=== PATIENT | male | born 1950 | race American Indian/Alaskan Native ===

== ENCOUNTER 2016-07-10 12:11 | Inpatient (IN) | payer OTHER ==
[2016-07-10 15:06] LABS: Basophils % (Auto) 1.2 % (0.0-1.8); Eosinophils % (Auto) 2.2 % (0.0-4.3); Hemoglobin 14.9 gm/dl (11.8-15.2); Mean Corpuscular HGB Conc 33 % (32-34); Mean Corpuscular Hemoglobin 26 pg (28-32); Mean Corpuscular Volume 81 fl (84-94); Platelet Count 151 K/mm3 (140-440); Red Blood Count 5.71 M/mm3 (3.65-5.03); Red Cell Distribution Width 16.5 % (13.2-15.2); White Blood Count 2.9 K/mm3 (4.5-11.0)
[2016-07-10 15:26] LABS: Alanine Aminotransferase 622 units/L (7-56); Albumin 4.2 g/dL (3.9-5); Albumin/Globulin Ratio 1.4 %; Alkaline Phosphatase 1101 units/L (35-129); Anion Gap 16 mmol/L; BUN/Creatinine Ratio 18.57; Bilirubin,Total 5.7 mg/dL (0.1-1.2); Blood Urea Nitrogen 13 mg/dL (9-20); Calcium 9.8 mg/dL (8.4-10.2); Carbon Dioxide 26 mmol/L (22-30); Glucose 178 mg/dL (75-100); Lipase 29 units/L (13-60); Potassium 4.2 mmol/L (3.6-5.0); Sodium 136 mmol/L (137-145); Total Protein 7.3 g/dL (6.3-8.2)
[2016-07-10 15:42] LABS: Bilirubin,Urine NEG (Negative); Blood,Urine NEG (Negative); Ketones,Urine NEG (Negative); Leukocyte Esterase,Urine NEG (Negative); Mucus,Urine FEW /HPF; Nitrite,Urine NEG (Negative); Protein,Urine <15 mg/dL mg/dL (Negative)
[2016-07-10] MEDS ORDERED: NACL ONE (18:41)
--- NOTE | 2016-07-10 21:21 | Cat Scan Report ---
FINAL REPORT EXAM: CT ABDOMEN PELVIS W CON HISTORY: elevated lft's, jaundice wt loss TECHNIQUE: CT images are acquired through the Abdomen and Pelvis following intravenous administration 100 cc Omnipaque 300 contrast. Transaxial, coronal and sagittal reformations are provided. PRIORS: None FINDINGS: Partially visualized intrathoracic contents are unremarkable. Diffuse marked intra and extrahepatic biliary ductal dilatation. Extensive pancreatic ductal dilatation with parenchymal atrophy. Heterogeneous pancreatic head secondary to underlying mass, which is ill-defined but probably measures around 2-3 centimeters in greatest dimension. There is no obvious tumor encasement of the celiac or superior mesenteric artery on this single phase exam. There is focal narrowing of both the splenic artery and splenic vein, which may be due to mass effect from pancreatic ductal dilatation. Distended gallbladder without cholelithiasis. The spleen and adrenal glands are unremarkable. Multiple hypo enhancing renal lesions in both kidneys are incompletely characterized on this exam. Nonobstructive 4 millimeter left renal stone. Kidneys show no worrisome lesions, hydronephrosis, or calculi. No stones in the urinary bladder. Mild prostatomegaly. Small and large bowel are normal in caliber. Appendix is normal. No pneumoperitoneum or ascites. Aorta is normal in course and caliber. Superficial soft tissues are unremarkable. No acute or aggressive appearing skeletal findings. IMPRESSION: Diffuse intra and extrahepatic biliary ductal dilatation secondary to ill-defined pancreatic head mass, most consistent with adenocarcinoma. No definite tumoral encasement of the major abdominal branches of the aorta on this single-phase examination. Consider multiphase CT versus MRI for further evaluation. Numerous indeterminate hypo enhancing lesions in both kidneys are most likely cysts but incompletely characterized on this exam. Dr. Sosa discussed findings with Dr. Mcnair at [facility] following the examination.
--- NOTE | 2016-07-10 21:30 | Emergency Department Report ---
- General Chief complaint: Weakness Stated complaint: WEIGHT LOSS/EXCESSIVE URINATION/DEHYDRATION Time Seen by Provider: 07/10/16 18:30 Source: patient Mode of arrival: Ambulatory Limitations: No Limitations - History of Present Illness Initial comments: 66-year-old male with no known past medical history but also no primary care doctor presents to the hospital complains of excessive urination 4 weeks, weight loss despite normal appetite and yellow eyes. Symptoms have been going on for weeks. Son at the bedside who is a physician expresses concern for diabetes and has been documenting fasting glucose levels between 170s and 200s. Patient denies any pain. No reports of nausea, vomiting, diarrhea, or fever. Severity scale (0 -10): 0 - Related Data Allergies Allergy/AdvReac Type Severity Reaction Status Date / Time No Known Allergies Allergy Unverified 07/10/16 14:00 ED Review of Systems ROS: Stated complaint: WEIGHT LOSS/EXCESSIVE URINATION/DEHYDRATION Other details as noted in HPI Comment: All other systems reviewed and negative Other: Constitutional: No fevers chills Eyes: jaundice ENT: No ear pain or throat pain Neck: Denies pain Respiratory: Denies cough wheezing shortness of breath Cardiovascular: Denies chest pain, palpitations, syncope GI: Denies abdominal pain, nausea, vomiting, diarrhea, constipation : Denies dysuria Musculoskeletal: Denies back pain Skin: Denies rash, lesions, erythema Neurologic: Denies headache, numbness, weakness Psychiatric: Denies suicidal ideation, hallucinations ED Past Medical Hx - Past Medical History Previous Medical History?: Yes Additional medical history: weakness - Surgical History Past Surgical History?: No - Social History Smoking Status: Former Smoker Substance Use Type: Alcohol ED Physical Exam - General Limitations: No Limitations - Other Other exam information: General: No limitations, patient is alert in no acute distress Head exam: Atraumatic, normocephalic Eyes exam: Jaundice ENT: Moist mucous membrane, normal oropharynx Neck exam: Normal inspection, full range of motion, no meningismus nontender Respiratory exam: Clear to auscultation bilateral, no wheezes, rales, crackles Cardiovascular: Normal rate and rhythm, normal heart sounds Abdomen: Soft, nondistended, and nontender, with normal bowel sounds, no rebound, or guarding Extremity: Full range of motion normal inspection no deformity Back: Normal Inspection, full range of motion, no tenderness Neurologic: Alert, oriented x3, cranial nerves intact, no motor or sensory deficit Psychiatric: normal affect, normal mood Skin: Warm, dry, intact ED Course Vital Signs 07/10/16 07/10/16 14:00 18:05 Temperature 98.3 F 98.1 F Pulse Rate 56 L 52 L Respiratory 18 16 Rate Blood Pressure 167/103 Blood Pressure 173/91 [Left] O2 Sat by Pulse 100 99 Oximetry - Reevaluation(s) Reevaluation #1: 07/10/16 23:05 pt remains stable without any acute distress - Consultations Consultation #1: 07/10/16 22:53 Case d/w Dr. Constanza CAAL and his group will evaluate pt during admission ED Medical Decision Making - Lab Data Result diagrams: 07/10/16 14:48 07/10/16 14:48 Lab Results 07/10/16 07/10/16 07/10/16 Range/Units 14:04 14:41 14:48 WBC 2.9 L (4.5-11.0) K/mm3 RBC 5.71 H (3.65-5.03) M/mm3 Hgb 14.9 (11.8-15.2) gm/dl Hct 46.0 H (35.5-45.6) % MCV 81 L (84-94) fl MCH 26 L (28-32) pg MCHC 33 (32-34) % RDW 16.5 H (13.2-15.2) % Plt Count 151 (140-440) K/mm3 Lymph % (Auto) 35.8 H (13.4-35.0) % Foard % (Auto) 12.2 H (0.0-7.3) % Eos % (Auto) 2.2 (0.0-4.3) % Baso % (Auto) 1.2 (0.0-1.8) % Lymph # 1.0 L (1.2-5.4) K/mm3 Foard # 0.4 (0.0-0.8) K/mm3 Eos # 0.1 (0.0-0.4) K/mm3 Baso # 0.0 (0.0-0.1) K/mm3 Seg Neutrophils % 48.6 (40.0-70.0) % Seg Neutrophils # 1.4 L (1.8-7.7) K/mm3 Sodium (137-145) mmol/L Potassium (3.6-5.0) mmol/L Chloride (98-107) mmol/L Carbon Dioxide (22-30) mmol/L Anion Gap mmol/L BUN (9-20) mg/dL Creatinine (0.8-1.5) mg/dL Estimated GFR ml/min BUN/Creatinine Ratio % Glucose (75-100) mg/dL POC Glucose 180 H (70-105) Hemoglobin A1c (4-6) % Calcium (8.4-10.2) mg/dL Total Bilirubin (0.1-1.2) mg/dL AST (5-40) units/L ALT (7-56) units/L Alkaline Phosphatase (35-129) units/L Total Protein (6.3-8.2) g/dL Albumin (3.9-5) g/dL Albumin/Globulin Ratio % Lipase (13-60) units/L Urine Color Rochelle (Yellow) Urine Turbidity Clear (Clear) Urine pH 5.0 (5.0-7.0) Ur Specific Pharr 1.017 (1.003-1.030) Urine Protein <15 mg/dl (Negative) mg/dL Urine Glucose (UA) >=500 (Negative) mg/dL Urine Ketones Neg (Negative) mg/dL Urine Blood Neg (Negative) Urine Nitrite Neg (Negative) Urine Bilirubin Neg (Negative) Urine Urobilinogen 4.0 (<2.0) mg/dL Ur Leukocyte Esterase Neg (Negative) Urine WBC (Auto) 1.0 (0.0-6.0) /HPF Urine RBC (Auto) 3.0 (0.0-6.0) /HPF U Epithel Cells (Auto) 1.0 (0-13.0) /HPF Calcium Oxalate Crystal 2+ Urine Mucus Few /HPF 07/10/16 07/10/16 Range/Units 14:48 14:48 WBC (4.5-11.0) K/mm3 RBC (3.65-5.03) M/mm3 Hgb (11.8-15.2) gm/dl Hct (35.5-45.6) % MCV (84-94) fl MCH (28-32) pg MCHC (32-34) % RDW (13.2-15.2) % Plt Count (140-440) K/mm3 Lymph % (Auto) (13.4-35.0) % Foard % (Auto) (0.0-7.3) % Eos % (Auto) (0.0-4.3) % Baso % (Auto) (0.0-1.8) % Lymph # (1.2-5.4) K/mm3 Foard # (0.0-0.8) K/mm3 Eos # (0.0-0.4) K/mm3 Baso # (0.0-0.1) K/mm3 Seg Neutrophils % (40.0-70.0) % Seg Neutrophils # (1.8-7.7) K/mm3 Sodium 136 L (137-145) mmol/L Potassium 4.2 (3.6-5.0) mmol/L Chloride 98.0 (98-107) mmol/L Carbon Dioxide 26 (22-30) mmol/L Anion Gap 16 mmol/L BUN 13 (9-20) mg/dL Creatinine 0.7 L (0.8-1.5) mg/dL Estimated GFR > 60 ml/min BUN/Creatinine Ratio 18.57 % Glucose 178 H (75-100) mg/dL POC Glucose (70-105) Hemoglobin A1c 10.0 H (4-6) % Calcium 9.8 (8.4-10.2) mg/dL Total Bilirubin 5.7 H (0.1-1.2) mg/dL AST 251 H (5-40) units/L ALT 622 H (7-56) units/L Alkaline Phosphatase 1101 H (35-129) units/L Total Protein 7.3 (6.3-8.2) g/dL Albumin 4.2 (3.9-5) g/dL Albumin/Globulin Ratio 1.4 % Lipase 29 (13-60) units/L Urine Color (Yellow) Urine Turbidity (Clear) Urine pH (5.0-7.0) Ur Specific Pharr (1.003-1.030) Urine Protein (Negative) mg/dL Urine Glucose (UA) (Negative) mg/dL Urine Ketones (Negative) mg/dL Urine Blood (Negative) Urine Nitrite (Negative) Urine Bilirubin (Negative) Urine Urobilinogen (<2.0) mg/dL Ur Leukocyte Esterase (Negative) Urine WBC (Auto) (0.0-6.0) /HPF Urine RBC (Auto) (0.0-6.0) /HPF U Epithel Cells (Auto) (0-13.0) /HPF Calcium Oxalate Crystal Urine Mucus /HPF - Radiology Data Radiology results: report reviewed ETM and pelvis IV contrast: Diffuse intrahepatic alert and intrahepatic biliary duct dilatation. There are 2 ill defined pancreatic head mass, most consistent with adenocarcinoma. No definite tumor encasement of the major abdominal branches of the aorta on this single phase examination. Numerous indeterminate hypoenhancing lesions in both kidneys most likely cyst with incomplete characterize on exam. - Medical Decision Making Patient has hypertension and new-onset diabetes as well as probable pancreatic cancer with intermittent intrahepatic duct dilatation. Case discussed with GI sheet rock installation helper Dr. Apodaca in preparation for possible stenting. PT requires admission to the hospital for further treatment - Differential Diagnosis pancreatic mass, pancreatic cancer, hepatitis, diabetes Critical Care Time: No Critical care attestation.: If time is entered above; I have spent that time in minutes in the direct care of this critically ill patient, excluding procedure time. ED Disposition Clinical Impression: Pancreatic cancer, Jaundice, Intrahepatic bile duct dilation, HTN (hypertension ), Diabetes mellitus, new onset Disposition: OP ADMITTED IP TO THIS HOSP Is pt being admited?: Yes Condition: Stable Time of Disposition: 21:30 (Dr Traore/hosp)
--- NOTE | 2016-07-10 21:51 | Admit Criteria Form ---
Admission Criteria Documentation: GASTROENTEROLOGY GRG Clinical Indications for Admission to Inpatient Care (Place 'X' for any and all applicable criteria): Hospital admission is needed for appropriate care of the patient because of ANY ONE of the following: [ ]I. Hemoperitoneum(7) [ ]II. Ascites requiring acute treatment indicated by ANY ONE of the following( 8)(9): [ ]a) Hemodynamic instability remaining after emergency or observation level care (as appropriate) [ ]b) Peritoneal signs present (eg, abdominal rigidity, rebound tenderness, absent bowel sounds) [ ]c) Tachypnea, Hypoxemia, or other respiratory symptoms remain after emergency or observation level care (as appropriate) [ ]d) Suspected infected ascites as indicated by ANY ONE of the following: [ ]i) Temperature greater than 100 degrees F (37.8 degrees C) [ ]ii) Abdominal pain or tenderness not relieved by paracentesis [ ]iii) Systemic signs of infection (eg, elevated WBC count, fever) [ ]iv) Ascitic fluid analysis consistent with infection ( eg, elevated WBC count): [ ]v) Vital sign abnormality [ ]III. Suspected acute intra-abdominal process indicated by ANY ONE of the following(1)(2)(3)(4)(5): [ ]a) Hemodynamic instability [ ]b) Peritoneal signs present (eg, abdominal rigidity, rebound tenderness, absent bowel sounds) [ ]c) Bowel obstruction suspected (eg, severe vomiting, abdominal distension) [ ]d) Suspected mesenteric ischemia or ischemic colitis(6) [ ]e) Other signs or symptoms of acute abdominal disease (eg, severe pain, free air): [ ]IV. Severe liver disease indicated by ANY ONE of the following(8)(9)(10)(11)( 12)(13)(14): [ ]a) Acute hepatitis (eg, transaminase level greater than 1000 IU/L) [ ]b) Acute elevation of prothrombin time to more than 50% above normal or INR greater than 1.5 [ ]c) Bilirubin greater than 20 mg/dL (342 micromoles/L) (15) [ ]d) New-onset or worsening hepatic encephalopathy [ ]e) Acute liver necrosis [ ]f) Vomiting or dehydration that is severe of persistent [ ]g) Hemodynamic instability due to liver disease [ ]h) Acute renal failure [ ]i) Hepatic abscess [ ]j) Dehydration that is severe or persistent [ ]k) Hepatic hydrothorax(21) [ ]l) Other indications of severe liver disease (eg, persistent fever , ingestion of hepatotoxin) [ ]V. Severe diarrhea indicated by ANY ONE of the following(17)(18)(19)(20)(21)( 22)(23): [ ]a) High fever or other high-risk infection situation [ ]b) Intractable bloody diarrhea (eg, more than 6 bloody stools per day) [ ]c) Suspected Clostridium difficile-associated diarrhea(24) [ ]d) Change in mental status that persists after emergency or observation level care (as appropriate) [ ]e) Severe dehydration (eg, greater than 9% loss of body weight in children) [ ]f) Inability to maintain hydration [ ]g) Peritoneal signs present (eg, abdominal rigidity, rebound tenderness, absent bowel sounds) [ ]h) Abdominal ischemia suspected(6) [ ]i) Hemodynamic instability that persists after emergency or observation level care (as appropriate) [ ]j) Severe electrolyte abnormalities requiring inpatient care [ ]k) Acute renal failure [ ]. Suspected toxic megacolon(5)(6) [ ]VII.Severe dysphagia indicated by ANY ONE of the following(25)(26): [ ]a) Suspected esophageal perforation or fistula(27) [ ]b) Suspected cause that requires inpatient care (eg, caustic ingestion, severe esophagitis) (28) [ ]c) Severe dehydration (eg, greater than 9% loss of body weight in children) [ ]d) Inability to manage secretions or maintain hydration [ ]e) Hemodynamic instability that persists after emergency or observation level care (as appropriate) [ ]f) Severe electrolyte abnormalities requiring inpatient care [ ]g) Acute renal failure [ ]VIII.Vomiting and ANY ONE of the following (29)(30)(31)(32): [ ]a) High fever or other high-risk infection situation [ ]b) Change in mental status that persists after emergency or observation level care (as appropriate) [ ]c) Severe dehydration (e.g., greater than 9% loss of body weight in children) [ ]d) Peritoneal signs present (e.g., abdominal rigidity, rebound tenderness, absent bowel sounds) [ ]e) Hemodynamic instability that persists after emergency or observation level care (as appropriate) [ ]f) Severe electrolyte abnormalities requiring inpatient care [ ]g) Acute renal failure [ ]h) Bowel obstruction suspected (e.g., severe vomiting, abdominal distension) [ ]i) Vomiting that is severe or persistent after medical treatment [ ]IX. Significant dehydration indicated by ANY ONE of the following(23)(24)(25) [ ]a) Clinical findings of severe dehydration indicated by ANY ONE of the following: [ ]i) Acute loss of weight from baseline (5% of body weight in adults, 9% in pediatric patients) [ ]ii) Hemodynamic instability [ ]iii) Acute renal failure [ ]iv) Serum sodium greater than 150 mEq/L (mmol/L) [ ]b) Dehydration that is persistent indicated by ALL of the following: [ ]i) Oral rehydration therapy not tolerated or insufficient to adequately correct dehydration [ ]ii) Appropriate intravenous treatment (eg, fluids) does not readily correct dehydration hours of (ie, after 12 to 24 of treatment) [ ]X. Gastroparesis and ANY ONE of the following(37)(38)(39): [ ]a) Dehydration that is severe or persistent [ ]b) Severe electrolyte abnormalities requiring inpatient care [ ]c) Acute renal failure [ ]d) Vomiting that is severe or persistent [ ]XI. Complications of transplanted liver indicated by ANY ONE of the following (40)(41): [ ]a) Acute graft rejection requiring inpatient management (eg, intravenous immunosuppression)(42) [ ]b) Failure of transplanted liver as indicated by ANY ONE of the following: [ ]i) Acute hepatitis (eg, transaminase level greater than 1000 International Units per liter (IU/L)) [ ]ii) Acute elevation of prothrombin time to more than 50% above baseline or INR greater than 1.5 [ ]iii) Bilirubin greater than 20 mg/dL (342 micromoles/L) [ ]iv) New-onset or worsening hepatic encephalopathy [ ]v) Acute elevation of serum ammonia level (eg, greater than 210 mcg/dL (150 micromoles/L)) [ ]vi) Acute liver necrosis [ ]c) Infection requiring inpatient management (eg, Hemodynamic instability, need for intravenous antimicrobial treatment)(43)(44)(45)(46)(47)(48)(49)(50) [ ]d) Other complication of transplanted liver (eg, thrombosis, autoimmune hepatitis, variceal bleeding) requiring inpatient management(51)(52) [ ]XII Complications of transplanted pancreas indicated by ANY ONE of the following(53): [ ]a) Acute graft rejection requiring inpatient management (eg, intravenous immunosuppression)(42)(54) [ ]b) Failure of transplanted pancreas as indicated by ANY ONE of the following: [ ]i) Serum amylase greater than 3 times the upper limit of normal or baseline [ ]ii) Serum lipase greater than 3 times the upper limit of normal or baseline [ ]iii) Imaging findings consistent with pancreatic inflammation or necrosis [ ]c) Infection requiring inpatient management (eg, Hemodynamic instability, need for intravenous antimicrobial treatment)(43)(44)(45)(46)(47)(48)(49)(50) [ ]d) Other complication of transplanted liver (eg, thrombosis, autoimmune hepatitis, variceal bleeding) requiring inpatient management(51)(52) [X ]X. Gastroenterology condition and ALL of the following: [X ]a) Symptom or finding for which emergency and observation care have failed or are not considered appropriate (Also use General Criteria: Observation Care as appropriate) [X ]b) Presence of ANY ONE of the following: [ X]i) A General Admission Criteria [ ]ii) A Pediatric General Admission Criteria. The original [facility] content created by [facility] has been revised. The portions of the content which have been revised are identified through the use of italic text or in bold,and [facility] has neither reviewed nor approved the modified material. All other unmodified content is copyright [facility]. Please see references footnoted in the original [facility] edition 2016 Admission Criteria Met: Yes
[2016-07-10] MEDS ORDERED: ZOFRAN IV PRN (22:53)
[2016-07-10] MEDS ORDERED: D50W (25GM) IV PRN (22:53)
[2016-07-10] MEDS ORDERED: TYLENOL PO PRN (22:53)
[2016-07-10] MEDS ORDERED: DULCOLAX PR PRN (22:53)
[2016-07-10] MEDS ORDERED: MILK OF MAGNESIA PO PRN (22:53)
--- NOTE | 2016-07-10 22:58 | History and Physical Report ---
History of Present Illness Date of examination: 07/10/16 History of present illness: 66-year-old man with no medical problems who was not seen a doctor in several years comes emergency room with complaints of pain a lot, drinking a lot and weight loss over the last 2 weeks. He also state that his eyes have been yellow , and a stool and being white and edition his urine has been very yellow. He is unable to quantify his weight loss. He also admits to early satiety. Patient son advised him to check his fingersticks in the mornings, they have all been greater than 170 Patient denies chest pain, palpitation, shortness of breath, cough, abdominal pain, hematochezia, dysuria, frequency, focal weakness, dysarthria, fever chills , polydipsia polyuria, hot or cold intolerance, easy bruisability, or rash or bleeding from mucosal membrane, rhinorrhea, epistaxis, earache, tinnitus, blurry vision, eye discharge, anxiety, depression. Other review of systems negative PAST SURGICAL HISTORY: None SOCIAL HISTORY: Seldom alcohol use, no tobacco or drug FAMILY HISTORY: Hypertension Medications and Allergies Allergies Allergy/AdvReac Type Severity Reaction Status Date / Time No Known Allergies Allergy Unverified 07/10/16 14:00 Exam - Physical Exam Narrative exam: Gen. appearance: Patient lying in bed, no apparent distress HEENT: Normocephalic, atraumatic, pupils equally round and reactive to light, extraocular movement intact, and +sclericterus,. No JVD or thyromegaly or nodule ,neck supple, no carotid bruit ,mucous membranes moist, no exudate or erythema Heart: S1, S2, regular rate and rhythm Lungs: Clear to auscultation bilaterally, breathing comfortable Abdomen: Positive bowel sounds, nontender, nondistended, no organomegaly Extremity: No edema, cyanosis, clubbing Skin: No rash, nodules, warm, dry Neuro: Oriented 3, cranial nerves II-12 intact, speech is fluent, motor and sensory intact - Constitutional Vitals: Temp Pulse Resp BP Pulse Ox 98.1 F 52 L 16 173/91 99 07/10/16 18:05 07/10/16 18:05 07/10/16 18:05 07/10/16 18:05 07/10/16 18:05 Results - Labs CBC & Chem 7: 07/12/16 16:08 07/13/16 11:17 Labs: Abnormal lab results 07/10/16 07/10/16 07/10/16 Range/Units 14:04 14:48 14:48 WBC 2.9 L (4.5-11.0) K/mm3 RBC 5.71 H (3.65-5.03) M/mm3 Hct 46.0 H (35.5-45.6) % MCV 81 L (84-94) fl MCH 26 L (28-32) pg RDW 16.5 H (13.2-15.2) % Lymph % (Auto) 35.8 H (13.4-35.0) % [place] % (Auto) 12.2 H (0.0-7.3) % Lymph # 1.0 L (1.2-5.4) K/mm3 Seg Neutrophils # 1.4 L (1.8-7.7) K/mm3 Sodium 136 L (137-145) mmol/L Creatinine 0.7 L (0.8-1.5) mg/dL Glucose 178 H (75-100) mg/dL POC Glucose 180 H (70-105) Hemoglobin A1c (4-6) % Total Bilirubin 5.7 H (0.1-1.2) mg/dL AST 251 H (5-40) units/L ALT 622 H (7-56) units/L Alkaline Phosphatase 1101 H (35-129) units/L 07/10/16 Range/Units 14:48 WBC (4.5-11.0) K/mm3 RBC (3.65-5.03) M/mm3 Hct (35.5-45.6) % MCV (84-94) fl MCH (28-32) pg RDW (13.2-15.2) % Lymph % (Auto) (13.4-35.0) % [place] % (Auto) (0.0-7.3) % Lymph # (1.2-5.4) K/mm3 Seg Neutrophils # (1.8-7.7) K/mm3 Sodium (137-145) mmol/L Creatinine (0.8-1.5) mg/dL Glucose (75-100) mg/dL POC Glucose (70-105) Hemoglobin A1c 10.0 H (4-6) % Total Bilirubin (0.1-1.2) mg/dL AST (5-40) units/L ALT (7-56) units/L Alkaline Phosphatase (35-129) units/L - Imaging and Cardiology CT scan - abdomen: report reviewed CT scan - pelvis: report reviewed Assessment and Plan Pancreatic cancer New-onset diabetes Admits medicine Start IV fluids, consult GI, oncology Check fingersticks and initiate insulin sliding scale Consult by lead radiation therapist for diabetes education Start DVT prophylaxis
[2016-07-11] MEDS: NOVOLOG SUB-Q SCH ×5 (00:23→23:09)
[2016-07-11] MEDS ORDERED: NOVOLOG SUB-Q ONE (00:35)
[2016-07-11] MEDS: NACL 0.45% 1000 ML 1,000 ML IV SCH ×2 (02:15→23:09)
[2016-07-11] MEDS: MORPHINE IV PRN ×2 (08:30→20:19)
[2016-07-11 08:41] LABS: Basophils % (Auto) 1.3 % (0.0-1.8); Eosinophils % (Auto) 3.5 % (0.0-4.3); Hematocrit 45.2 % (35.5-45.6); Hemoglobin 14.8 gm/dl (11.8-15.2); Mean Corpuscular HGB Conc 33 % (32-34); Mean Corpuscular Hemoglobin 26 pg (28-32); Mean Corpuscular Volume 80 fl (84-94); Platelet Count 145 K/mm3 (140-440); Red Blood Count 5.66 M/mm3 (3.65-5.03); Red Cell Distribution Width 16.9 % (13.2-15.2); White Blood Count 3.2 K/mm3 (4.5-11.0)
[2016-07-11 09:15] LABS: Anion Gap 18 mmol/L; Blood Urea Nitrogen 14 mg/dL (9-20); Calcium 9.8 mg/dL (8.4-10.2); Carbon Dioxide 25 mmol/L (22-30); Chloride 98.8 mmol/L (98-107); Glucose 136 mg/dL (75-100); Potassium 3.9 mmol/L (3.6-5.0); Sodium 138 mmol/L (137-145)
--- NOTE | 2016-07-11 10:19 | Gastroenterology Consultation ---
Addendum entered and electronically signed by CYNTHIA FORD NP 07/11/16 10:21: Will cancel MRI for now. Plan for ERCP today, Keep NPO. Original Note: History of Present Illness - Reason for Consult Consult date: 07/11/16 pancreatic mass abdominal pain Requesting physician: BON LZAAR - History of Present Illness Mr. rAshad is a 66 y/o Male admitted with weight loss, abdominal pain, weakness and frequent urination. CT per ED reveals possible pancreatic head mass. He reports a 2 week hx of weight loss, 8-10 lbs, with epigastric/ upper abdominal pain. No prior medical hx. Family hx is unknown. Past History Past Medical History: No medical history Past Surgical History: No surgical history Social history: lives with family. denies: alcohol abuse Family history: other (unknown.) Medications and Allergies Allergies Allergy/AdvReac Type Severity Reaction Status Date / Time No Known Allergies Allergy Unverified 07/10/16 14:00 Active Meds: Active Medications Acetaminophen (Tylenol) 650 mg PO Q4H PRN PRN Reason: Pain MILD(1-3)/Fever >100.5/THOMPSON Bisacodyl (Dulcolax) 10 mg HI QDAY PRN PRN Reason: Constipation unrelieved by MOM Dextrose (D50w (25gm)) 50 ml IV PRN PRN PRN Reason: Hypoglycemia Enoxaparin Sodium (Lovenox) 40 mg SUB-Q QDAY MARTINE Sodium Chloride (Nacl 0.45% 1000 Ml) 1,000 mls @ 75 mls/hr IV DIRECT MARTINE Last Admin: 07/11/16 02:15 Dose: 75 mls/hr Influenza Virus Vaccine Quadrival (Fluarix Quad [id number](36 Mos+)) 60 mcg IM .ONCE ONE Stop: 07/11/16 12:01 Insulin Aspart (Novolog) 0 units SUB-Q ACHS MARTINE PRN Reason: Protocol Last Admin: 07/11/16 07:45 Dose: Not Given Magnesium Hydroxide (Milk Of Magnesia) 30 ml PO Q4H PRN PRN Reason: Constipation Morphine Sulfate (Morphine) 2 mg IV Q4H PRN PRN Reason: Pain, Moderate (4-6) Last Admin: 07/11/16 08:30 Dose: 2 mg Ondansetron HCl (Zofran) 4 mg IV Q4H PRN PRN Reason: N/V unrelieved by Reglan Review of Systems - Review of Systems All systems: negative Constitutional: weakness, poor appetite Gastrointestinal: abdominal pain, diarrhea, jaundice Exam - Constitutional Vital Signs: Temp Pulse Resp BP Pulse Ox 98.1 F 50 L 18 152/83 97 07/11/16 08:00 07/11/16 08:00 07/11/16 08:00 07/11/16 08:00 07/11/16 09:14 General appearance: no acute distress - EENT Eyes: EOM intact, scleral icterus ENT: hearing intact - Neck Neck: supple - Respiratory Respiratory: bilateral: CTA - Cardiovascular Rhythm: regular Heart Sounds: Present: S1 & S2 Extremities: No edema - Gastrointestinal General gastrointestinal: Present: soft, tender, non-distended, normal bowel sounds - Integumentary Integumentary: Present: warm, dry - Neurologic Neurological: alert and oriented x3 - Psychiatric Psychiatric: cooperative - Labs CBC & Chem 7: 07/11/16 07:38 07/11/16 07:38 Lab Results: Laboratory Results - last 24 hr 07/11/16 07/11/16 07/11/16 00:16 07:38 07:38 WBC 3.2 L RBC 5.66 H Hgb 14.8 Hct 45.2 MCV 80 L MCH 26 L MCHC 33 RDW 16.9 H Plt Count 145 Lymph % (Auto) 36.3 H [place] % (Auto) 10.2 H Eos % (Auto) 3.5 Baso % (Auto) 1.3 Lymph # 1.2 [place] # 0.3 Eos # 0.1 Baso # 0.0 Seg Neutrophils % 48.7 Seg Neutrophils # 1.6 L Sodium 138 Potassium 3.9 Chloride 98.8 Carbon Dioxide 25 Anion Gap 18 BUN 14 Creatinine 0.7 L Estimated GFR > 60 BUN/Creatinine Ratio 20.00 Glucose 136 H POC Glucose 257 H Calcium 9.8 Assessment and Plan 1. Abdominal Pain 2. Abnormal CT with noted pancreatic mass at head of the pancreas -MRI -Ca-19-9 -Oncology consult. -Noted biliary ductal dilation with 23 cm mass at head of pancreas. WIll d/w Dr. Raphael regarding if ERCP is needed. -Further recommendations to follow. Keep NPO for now.
[2016-07-11] MEDS: LOVENOX SUB-Q SCH (11:53)
[2016-07-11] MEDS ORDERED: FLUARIX QUAD 2016-2017(36 MOS+) IM ONE (12:00)
[2016-07-11 13:06] LABS: INR 0.9 (0.87-1.13)
--- NOTE | 2016-07-11 13:51 | Anesthesia Day of Surgery ---
Anesthesia Day of Surgery - Day of Surgery Patient Examined: Yes Patient H&P Reviewed: Yes Patient is NPO: Yes Beta Blockers: No Cardiac Clearance: No Pulmonary Clearance: No
--- NOTE | 2016-07-11 13:52 | Anesthesia Consultation ---
Anesthesia Consult and Med Hx Date of service: 07/11/16 - Airway Anesthetic Teeth Evaluation: Good ROM Head & Neck: Adequate Mental/Hyoid Distance: Inadequate Mallampati Class: Class III Intubation Access Assessment: Possibly Difficult - Pulmonary Exam CTA: Yes (blbs clear) - Cardiac Exam Cardiac Exam: RRR - Pre-Operative Health Status ASA Pre-Surgery Classification: ASA4 Proposed Anesthetic Plan: General - Pulmonary Hx Asthma: No COPD: No Hx Pneumonia: No - Cardiovascular System Hx Hypertension: Yes - Endocrine Hx End Stage Renal Disease: No Hx Insulin Dependent Diabetes: Yes - Additional Comments Anesthesia Medical History Comments: CT pancreatic mass/wt loss/elevated LFT
[2016-07-11] MEDS ORDERED: NACL 0.9% 1000 ML 1,000 ML IV SCH (14:00)
[2016-07-11] MEDS ORDERED: NACL 0.9% 100 ML ONE (14:47)
[2016-07-11] MEDS ORDERED: WATER FOR IRRIG STERILE IR ONE ×2 (14:47→15:01)
[2016-07-11] MEDS ORDERED: DIPRIVAN 10 MG/ML IV ONE ×4 (15:11)
[2016-07-11] MEDS ORDERED: VERSED ONE (15:18)
[2016-07-11] MEDS ORDERED: SUBLIMAZE ONE ×2 (15:18→15:19)
--- NOTE | 2016-07-11 15:36 | Post Anesthesia Evaluation ---
- Post Anesthesia Evaluation Patient Participated: Yes Airway Patent: Yes Stable Respiratory Function: Yes Nausea/Vomiting: No Temp > 96.8F: Yes Pain Manageable: Yes Adequeate Hydration: Yes Anesthesia Complications: No Block Receding Appropriately: Not Applicable Patient on Ventilator: No
[2016-07-11] MEDS ORDERED: GLUCAGEN ONE (15:37)
--- NOTE | 2016-07-11 17:13 | Post Operative Note ---
Pre-op diagnosis: biliary obstruction Post-op diagnosis: same Findings: ERCP; bulging ampullae - dilated pancreatic duct - distal cbd stricture (approx. 4 cm) w/ dilate proximal biliary tree - brushings performed - 10F7cm stent placed Procedure: ERCP Anesthesia: MAC Surgeon: FARHEEN ARRIAGA Estimated blood loss: none Pathology: list Condition: stable
--- NOTE | 2016-07-11 18:47 | Operative Report ---
PROCEDURE PERFORMED: ERCP with sphincterotomy, brushings and stent placement. INDICATION: 1. Pancreatic mass. 2. Biliary obstruction. MEDICATIONS: Propofol per TAG WRITER. COMPLICATIONS: None. DESCRIPTION OF PROCEDURE: The patient was brought to the procedure suite. The patient had the procedure discussed with him at length. All risks, complications, and benefits were discussed, which the patient signed for the procedure to be performed. The patient was placed in left lateral decubitus position. Mouth block was placed in the patient's oral cavity. After adequate sedation medication as above, the endoscope was introduced into the mouth and brought to the level of the second portion of duodenum. Retroflexion view performed. The patient's vital signs remained stable throughout the procedure. FINDINGS: There was noted to be a bulging ampulla, normal second portion of duodenum. A sphincterotome was then inserted. Pancreatogram showed a dilated pancreatic duct. Cholangiogram showed approximately 4 mm distal common bile duct stricture with a dilated proximal common bile duct, common hepatic duct and intrahepatic radicals. The common bile duct was approximately 10 to 12 mm. Sphincterotome was then inserted. Brushing was then performed of the distal common bile duct. A 10-Sinhala 7 cm stent was then placed across the distal common bile duct. Post-procedure, the patient was satisfactory. The patient tolerated the procedure well. No complications during the procedure. IMPRESSION: 1. Bulging ampulla. 2. Dilated pancreatogram. 3. Cholangiogram with dilated common bile duct, common hepatic duct and intrahepatic ducts with a distal common bile duct stricture as noted above. 4. Sphincterotomy performed. 5. Brushing was performed: 6. Stent placed as noted above. RECOMMENDATIONS: 1. Follow labs and brushes. 2. Advance diet based on progress. 3. Further recommendation to follow. JOB# [id number] CAB/NTS
--- NOTE | 2016-07-11 22:24 | Progress Note ---
Hospitalist Physical - Constitutional Vitals: Temp Pulse Resp BP Pulse Ox 97.6 F 60 16 151/85 100 07/11/16 18:00 07/11/16 18:00 07/11/16 20:19 07/11/16 18:00 07/11/16 18:00 Results - Labs CBC & Chem 7: 07/11/16 07:38 07/11/16 07:38 Labs: Laboratory Last Values WBC 3.2 K/mm3 (4.5-11.0) L 07/11/16 07:38 RBC 5.66 M/mm3 (3.65-5.03) H 07/11/16 07:38 Hgb 14.8 gm/dl (11.8-15.2) 07/11/16 07:38 Hct 45.2 % (35.5-45.6) 07/11/16 07:38 MCV 80 fl (84-94) L 07/11/16 07:38 MCH 26 pg (28-32) L 07/11/16 07:38 MCHC 33 % (32-34) 07/11/16 07:38 RDW 16.9 % (13.2-15.2) H 07/11/16 07:38 Plt Count 145 K/mm3 (140-440) 07/11/16 07:38 Lymph % (Auto) 36.3 % (13.4-35.0) H 07/11/16 07:38 [place] % (Auto) 10.2 % (0.0-7.3) H 07/11/16 07:38 Eos % (Auto) 3.5 % (0.0-4.3) 07/11/16 07:38 Baso % (Auto) 1.3 % (0.0-1.8) 07/11/16 07:38 Lymph # 1.2 K/mm3 (1.2-5.4) 07/11/16 07:38 Andrew # 0.3 K/mm3 (0.0-0.8) 07/11/16 07:38 Eos # 0.1 K/mm3 (0.0-0.4) 07/11/16 07:38 Baso # 0.0 K/mm3 (0.0-0.1) 07/11/16 07:38 Seg Neutrophils % 48.7 % (40.0-70.0) 07/11/16 07:38 Seg Neutrophils # 1.6 K/mm3 (1.8-7.7) L 07/11/16 07:38 PT 12.0 Sec. (12.2-14.9) L 07/11/16 12:27 INR 0.90 (0.87-1.13) 07/11/16 12:27 Sodium 138 mmol/L (137-145) 07/11/16 07:38 Potassium 3.9 mmol/L (3.6-5.0) 07/11/16 07:38 Chloride 98.8 mmol/L (98-107) 07/11/16 07:38 Carbon Dioxide 25 mmol/L (22-30) 07/11/16 07:38 Anion Gap 18 mmol/L 07/11/16 07:38 BUN 14 mg/dL (9-20) 07/11/16 07:38 Creatinine 0.7 mg/dL (0.8-1.5) L 07/11/16 07:38 Estimated GFR > 60 ml/min 07/11/16 07:38 BUN/Creatinine Ratio 20.00 % 07/11/16 07:38 Glucose 136 mg/dL (75-100) H 07/11/16 07:38 POC Glucose 137 (70-105) H 07/11/16 11:53 Hemoglobin A1c 10.0 % (4-6) H 07/10/16 14:48 Calcium 9.8 mg/dL (8.4-10.2) 07/11/16 07:38 Total Bilirubin 5.7 mg/dL (0.1-1.2) H 07/10/16 14:48 AST 251 units/L (5-40) H 07/10/16 14:48 ALT 622 units/L (7-56) H 07/10/16 14:48 Alkaline Phosphatase 1101 units/L (35-129) H 07/10/16 14:48 Total Protein 7.3 g/dL (6.3-8.2) 07/10/16 14:48 Albumin 4.2 g/dL (3.9-5) 07/10/16 14:48 Albumin/Globulin Ratio 1.4 % 07/10/16 14:48 Lipase 29 units/L (13-60) 07/10/16 14:48 Urine Color [place] (Yellow) 07/10/16 14:41 Urine Turbidity Clear (Clear) 07/10/16 14:41 Urine pH 5.0 (5.0-7.0) 07/10/16 14:41 Ur Specific [place] 1.017 (1.003-1.030) 07/10/16 14:41 Urine Protein <15 mg/dl mg/dL (Negative) 07/10/16 14:41 Urine Glucose (UA) >=500 mg/dL (Negative) 07/10/16 14:41 Urine Ketones Neg mg/dL (Negative) 07/10/16 14:41 Urine Blood Neg (Negative) 07/10/16 14:41 Urine Nitrite Neg (Negative) 07/10/16 14:41 Urine Bilirubin Neg (Negative) 07/10/16 14:41 Urine Urobilinogen 4.0 mg/dL (<2.0) 07/10/16 14:41 Ur Leukocyte Esterase Neg (Negative) 07/10/16 14:41 Urine WBC (Auto) 1.0 /HPF (0.0-6.0) 07/10/16 14:41 Urine RBC (Auto) 3.0 /HPF (0.0-6.0) 07/10/16 14:41 U Epithel Cells (Auto) 1.0 /HPF (0-13.0) 07/10/16 14:41 Calcium Oxalate Crystal 2+ 07/10/16 14:41 Urine Mucus Few /HPF 07/10/16 14:41
--- NOTE | 2016-07-12 08:22 | Fluoroscopy Report ---
TWELVE FLUOROSCOPIC IMAGES AT ERCP: 07/11/16 10:23:00 CLINICAL: Pancreatic head mass. FINDINGS: A individual pension consultant image shows no calculi. Subsequent images show cannulation of the ampulla and retrograde opacification of a markedly dilated CBD. Irregular short stricture of the distal CBD is suspicious for tumor. No CBD stone identified. The pancreatic duct was not opacified. For more information,please refer to the operative report.
[2016-07-12] MEDS: NOVOLOG SUB-Q SCH ×4 (09:31→22:27)
[2016-07-12] MEDS: LOVENOX SUB-Q SCH (09:32)
--- NOTE | 2016-07-12 15:26 | Gastroenterology Progress Note ---
Assessment and Plan 1. Abdominal Pain 2. Abnormal CT with noted pancreatic mass at head of the pancreas -Ca-19-9 pending -S/P ERCP with brushings and stent placement. -Oncology consult. -Tolerating soft diet with decreased appetite -CBC/ CMP pending. -Further recommendations to follow. Subjective Date of service: 07/12/16 Interval history: No acute distress, family at bedside. Objective - Constitutional Vitals: Temp Pulse Resp BP Pulse Ox 98.9 F 62 18 180/90 99 07/12/16 08:00 07/12/16 08:00 07/12/16 08:00 07/12/16 08:00 07/12/16 09:27 General appearance: no acute distress - EENT Eyes: EOM intact ENT: hearing intact - Integumentary Integumentary: Present: warm, dry - Neurologic Neurological: alert and oriented x3 - Psychiatric Psychiatric: appropriate mood/affect, cooperative - Labs CBC & Chem 7: 07/11/16 07:38 07/11/16 07:38 Labs: Laboratory Results - last 24 hr 07/11/16 07/11/16 07/12/16 18:30 20:51 06:04 POC Glucose 134 H 187 H 180 H 07/12/16 12:01 POC Glucose 248 H
[2016-07-12 16:45] LABS: Hematocrit 38.8 % (35.5-45.6); Hemoglobin 12.7 gm/dl (11.8-15.2); Mean Corpuscular HGB Conc 33 % (32-34); Mean Corpuscular Hemoglobin 26 pg (28-32); Mean Corpuscular Volume 80 fl (84-94); Platelet Count 126 K/mm3 (140-440); Red Blood Count 4.85 M/mm3 (3.65-5.03); Red Cell Distribution Width 16.6 % (13.2-15.2); White Blood Count 5.2 K/mm3 (4.5-11.0)
[2016-07-12] MEDS: NACL 0.45% 1000 ML 1,000 ML IV SCH (16:51)
[2016-07-12 17:01] LABS: Alanine Aminotransferase 523 units/L (7-56); Albumin 3.3 g/dL (3.9-5); Albumin/Globulin Ratio 1.4 %; Alkaline Phosphatase 846 units/L (35-129); Anion Gap 16 mmol/L; BUN/Creatinine Ratio 25.71; Bilirubin,Total 4.7 mg/dL (0.1-1.2); Blood Urea Nitrogen 18 mg/dL (9-20); Calcium 8.9 mg/dL (8.4-10.2); Carbon Dioxide 24 mmol/L (22-30); Chloride 98.9 mmol/L (98-107); Glucose 254 mg/dL (75-100); Potassium 4.3 mmol/L (3.6-5.0); Sodium 135 mmol/L (137-145); Total Protein 5.6 g/dL (6.3-8.2)
[2016-07-12] MEDS ORDERED: NACL ONE (17:59)
--- NOTE | 2016-07-12 19:23 | Progress Note ---
History Interval history: s/p ERCP 07/11; c/o abd pain overnight, better this morning Hospitalist Physical - Constitutional Vitals: Temp Pulse Resp BP Pulse Ox 98.8 F 67 18 154/84 99 07/12/16 16:00 07/12/16 16:00 07/12/16 16:00 07/12/16 16:00 07/12/16 09:27 Results - Labs CBC & Chem 7: 07/12/16 16:08 07/12/16 16:08 Labs: Laboratory Last Values WBC 5.2 K/mm3 (4.5-11.0) 07/12/16 16:08 RBC 4.85 M/mm3 (3.65-5.03) 07/12/16 16:08 Hgb 12.7 gm/dl (11.8-15.2) 07/12/16 16:08 Hct 38.8 % (35.5-45.6) D 07/12/16 16:08 MCV 80 fl (84-94) L 07/12/16 16:08 MCH 26 pg (28-32) L 07/12/16 16:08 MCHC 33 % (32-34) 07/12/16 16:08 RDW 16.6 % (13.2-15.2) H 07/12/16 16:08 Plt Count 126 K/mm3 (140-440) L 07/12/16 16:08 Lymph % (Auto) 36.3 % (13.4-35.0) H 07/11/16 07:38 [place] % (Auto) 10.2 % (0.0-7.3) H 07/11/16 07:38 Eos % (Auto) 3.5 % (0.0-4.3) 07/11/16 07:38 Baso % (Auto) 1.3 % (0.0-1.8) 07/11/16 07:38 Lymph # 1.2 K/mm3 (1.2-5.4) 07/11/16 07:38 [place] # 0.3 K/mm3 (0.0-0.8) 07/11/16 07:38 Eos # 0.1 K/mm3 (0.0-0.4) 07/11/16 07:38 Baso # 0.0 K/mm3 (0.0-0.1) 07/11/16 07:38 Seg Neutrophils % 48.7 % (40.0-70.0) 07/11/16 07:38 Seg Neutrophils # 1.6 K/mm3 (1.8-7.7) L 07/11/16 07:38 PT 12.0 Sec. (12.2-14.9) L 07/11/16 12:27 INR 0.90 (0.87-1.13) 07/11/16 12:27 Sodium 135 mmol/L (137-145) L 07/12/16 16:08 Potassium 4.3 mmol/L (3.6-5.0) 07/12/16 16:08 Chloride 98.9 mmol/L (98-107) 07/12/16 16:08 Carbon Dioxide 24 mmol/L (22-30) 07/12/16 16:08 Anion Gap 16 mmol/L 07/12/16 16:08 BUN 18 mg/dL (9-20) 07/12/16 16:08 Creatinine 0.7 mg/dL (0.8-1.5) L 07/12/16 16:08 Estimated GFR > 60 ml/min 07/12/16 16:08 BUN/Creatinine Ratio 25.71 % 07/12/16 16:08 Glucose 254 mg/dL (75-100) H 07/12/16 16:08 POC Glucose 271 (70-105) H 07/12/16 16:29 Hemoglobin A1c 10.0 % (4-6) H 07/10/16 14:48 Calcium 8.9 mg/dL (8.4-10.2) 07/12/16 16:08 Total Bilirubin 4.7 mg/dL (0.1-1.2) H 07/12/16 16:08 AST 299 units/L (5-40) H 07/12/16 16:08 ALT 523 units/L (7-56) H 07/12/16 16:08 Alkaline Phosphatase 846 units/L (35-129) H 07/12/16 16:08 Total Protein 5.6 g/dL (6.3-8.2) L D 07/12/16 16:08 Albumin 3.3 g/dL (3.9-5) L 07/12/16 16:08 Albumin/Globulin Ratio 1.4 % 07/12/16 16:08 Lipase 29 units/L (13-60) 07/10/16 14:48 Urine Color [place] (Yellow) 07/10/16 14:41 Urine Turbidity Clear (Clear) 07/10/16 14:41 Urine pH 5.0 (5.0-7.0) 07/10/16 14:41 Ur Specific [place] 1.017 (1.003-1.030) 07/10/16 14:41 Urine Protein <15 mg/dl mg/dL (Negative) 07/10/16 14:41 Urine Glucose (UA) >=500 mg/dL (Negative) 07/10/16 14:41 Urine Ketones Neg mg/dL (Negative) 07/10/16 14:41 Urine Blood Neg (Negative) 07/10/16 14:41 Urine Nitrite Neg (Negative) 07/10/16 14:41 Urine Bilirubin Neg (Negative) 07/10/16 14:41 Urine Urobilinogen 4.0 mg/dL (<2.0) 07/10/16 14:41 Ur Leukocyte Esterase Neg (Negative) 07/10/16 14:41 Urine WBC (Auto) 1.0 /HPF (0.0-6.0) 07/10/16 14:41 Urine RBC (Auto) 3.0 /HPF (0.0-6.0) 07/10/16 14:41 U Epithel Cells (Auto) 1.0 /HPF (0-13.0) 07/10/16 14:41 Calcium Oxalate Crystal 2+ 07/10/16 14:41 Urine Mucus Few /HPF 07/10/16 14:41
[2016-07-13] MEDS: NACL 0.45% 1000 ML 1,000 ML IV SCH ×2 (06:28→21:15)
[2016-07-13] MEDS: NOVOLOG SUB-Q SCH ×4 (08:29→21:45)
[2016-07-13] MEDS: LOVENOX SUB-Q SCH (09:52)
--- NOTE | 2016-07-13 10:57 | Event Note ---
Date: 07/13/16 Patient in the shower, in room. Cytology pending. Oncology consult pending. WIll follow up. states patient is tolerating diet well. CMP pending. DONNELL Newton-BC
[2016-07-13 11:54] LABS: Alanine Aminotransferase 470 units/L (7-56); Albumin 3.4 g/dL (3.9-5); Albumin/Globulin Ratio 1.3 %; Alkaline Phosphatase 800 units/L (35-129); Anion Gap 16 mmol/L; Bilirubin,Total 3.5 mg/dL (0.1-1.2); Blood Urea Nitrogen 22 mg/dL (9-20); Calcium 9.3 mg/dL (8.4-10.2); Carbon Dioxide 25 mmol/L (22-30); Chloride 96.5 mmol/L (98-107); Glucose 381 mg/dL (75-100); Potassium 4.1 mmol/L (3.6-5.0); Sodium 133 mmol/L (137-145); Total Protein 6.1 g/dL (6.3-8.2)
--- NOTE | 2016-07-13 15:45 | Hem/Onc Consultation ---
History of Present Illness - Reason for Consult Consult date: 07/13/16 - History of Present Illness dictated. awaiting ca 19-9 awating cytology Past History Past Medical History: No medical history Past Surgical History: No surgical history Social history: lives with family. denies: alcohol abuse Family history: other (unknown.) Medications and Allergies Allergies Allergy/AdvReac Type Severity Reaction Status Date / Time No Known Allergies Allergy Unverified 07/10/16 14:00 Active Meds: Active Medications Acetaminophen (Tylenol) 650 mg PO Q4H PRN PRN Reason: Pain MILD(1-3)/Fever >100.5/THOMPSON Bisacodyl (Dulcolax) 10 mg VA QDAY PRN PRN Reason: Constipation unrelieved by MOM Dextrose (D50w (25gm)) 50 ml IV PRN PRN PRN Reason: Hypoglycemia Enoxaparin Sodium (Lovenox) 40 mg SUB-Q QDAY MARTINE Last Admin: 07/13/16 09:52 Dose: 40 mg Sodium Chloride (Nacl 0.45% 1000 Ml) 1,000 mls @ 75 mls/hr IV DIRECT MARTINE Last Admin: 07/13/16 06:28 Dose: 75 mls/hr Insulin Aspart (Novolog) 0 units SUB-Q ACHS MARTINE PRN Reason: Protocol Last Admin: 07/13/16 12:48 Dose: 4 units Magnesium Hydroxide (Milk Of Magnesia) 30 ml PO Q4H PRN PRN Reason: Constipation Morphine Sulfate (Morphine) 2 mg IV Q4H PRN PRN Reason: Pain, Moderate (4-6) Last Admin: 07/11/16 20:19 Dose: 2 mg Ondansetron HCl (Zofran) 4 mg IV Q4H PRN PRN Reason: N/V unrelieved by Reglan Exam - Constitutional Vitals: Last Vital Signs Temp 98.4 F 07/13/16 09:00 Pulse 71 07/13/16 09:00 Resp 18 07/13/16 09:00 BP 123/88 07/13/16 09:00 Pulse Ox 71 L 07/13/16 09:00 Results - Labs lab Results: Laboratory Results - last 24 hr 07/12/16 07/12/16 07/12/16 16:08 16:08 16:29 WBC 5.2 RBC 4.85 Hgb 12.7 Hct 38.8 D MCV 80 L MCH 26 L MCHC 33 RDW 16.6 H Plt Count 126 L Sodium 135 L Potassium 4.3 Chloride 98.9 Carbon Dioxide 24 Anion Gap 16 BUN 18 Creatinine 0.7 L Estimated GFR > 60 BUN/Creatinine Ratio 25.71 Glucose 254 H POC Glucose 271 H Calcium 8.9 Total Bilirubin 4.7 H AST 299 H ALT 523 H Alkaline Phosphatase 846 H Total Protein 5.6 L D Albumin 3.3 L Albumin/Globulin Ratio 1.4 07/12/16 07/13/16 07/13/16 21:43 05:47 11:17 WBC RBC Hgb Hct MCV MCH MCHC RDW Plt Count Sodium 133 L Potassium 4.1 Chloride 96.5 L Carbon Dioxide 25 Anion Gap 16 BUN 22 H Creatinine 0.8 Estimated GFR > 60 BUN/Creatinine Ratio 27.50 Glucose 381 H POC Glucose 214 H 154 H Calcium 9.3 Total Bilirubin 3.5 H AST 197 H ALT 470 H Alkaline Phosphatase 800 H Total Protein 6.1 L Albumin 3.4 L Albumin/Globulin Ratio 1.3 07/13/16 12:35 WBC RBC Hgb Hct MCV MCH MCHC RDW Plt Count Sodium Potassium Chloride Carbon Dioxide Anion Gap BUN Creatinine Estimated GFR BUN/Creatinine Ratio Glucose POC Glucose 255 H Calcium Total Bilirubin AST ALT Alkaline Phosphatase Total Protein Albumin Albumin/Globulin Ratio
--- NOTE | 2016-07-13 23:27 | Progress Note ---
Hospitalist Physical - Constitutional Vitals: Temp Pulse Resp BP Pulse Ox 99.1 F 57 L 18 135/86 100 07/13/16 17:00 07/13/16 17:00 07/13/16 17:00 07/13/16 17:00 07/13/16 17:00 Results - Labs CBC & Chem 7: 07/12/16 16:08 07/13/16 11:17 Labs: Laboratory Last Values WBC 5.2 K/mm3 (4.5-11.0) 07/12/16 16:08 RBC 4.85 M/mm3 (3.65-5.03) 07/12/16 16:08 Hgb 12.7 gm/dl (11.8-15.2) 07/12/16 16:08 Hct 38.8 % (35.5-45.6) D 07/12/16 16:08 MCV 80 fl (84-94) L 07/12/16 16:08 MCH 26 pg (28-32) L 07/12/16 16:08 MCHC 33 % (32-34) 07/12/16 16:08 RDW 16.6 % (13.2-15.2) H 07/12/16 16:08 Plt Count 126 K/mm3 (140-440) L 07/12/16 16:08 Lymph % (Auto) 36.3 % (13.4-35.0) H 07/11/16 07:38 [place] % (Auto) 10.2 % (0.0-7.3) H 07/11/16 07:38 Eos % (Auto) 3.5 % (0.0-4.3) 07/11/16 07:38 Baso % (Auto) 1.3 % (0.0-1.8) 07/11/16 07:38 Lymph # 1.2 K/mm3 (1.2-5.4) 07/11/16 07:38 [place] # 0.3 K/mm3 (0.0-0.8) 07/11/16 07:38 Eos # 0.1 K/mm3 (0.0-0.4) 07/11/16 07:38 Baso # 0.0 K/mm3 (0.0-0.1) 07/11/16 07:38 Seg Neutrophils % 48.7 % (40.0-70.0) 07/11/16 07:38 Seg Neutrophils # 1.6 K/mm3 (1.8-7.7) L 07/11/16 07:38 PT 12.0 Sec. (12.2-14.9) L 07/11/16 12:27 INR 0.90 (0.87-1.13) 07/11/16 12:27 Sodium 133 mmol/L (137-145) L 07/13/16 11:17 Potassium 4.1 mmol/L (3.6-5.0) 07/13/16 11:17 Chloride 96.5 mmol/L (98-107) L 07/13/16 11:17 Carbon Dioxide 25 mmol/L (22-30) 07/13/16 11:17 Anion Gap 16 mmol/L 07/13/16 11:17 BUN 22 mg/dL (9-20) H 07/13/16 11:17 Creatinine 0.8 mg/dL (0.8-1.5) 07/13/16 11:17 Estimated GFR > 60 ml/min 07/13/16 11:17 BUN/Creatinine Ratio 27.50 % 07/13/16 11:17 Glucose 381 mg/dL (75-100) H 07/13/16 11:17 POC Glucose 297 (70-105) H 07/13/16 21:33 Hemoglobin A1c 10.0 % (4-6) H 07/10/16 14:48 Calcium 9.3 mg/dL (8.4-10.2) 07/13/16 11:17 Total Bilirubin 3.5 mg/dL (0.1-1.2) H 07/13/16 11:17 AST 197 units/L (5-40) H 07/13/16 11:17 ALT 470 units/L (7-56) H 07/13/16 11:17 Alkaline Phosphatase 800 units/L (35-129) H 07/13/16 11:17 Total Protein 6.1 g/dL (6.3-8.2) L 07/13/16 11:17 Albumin 3.4 g/dL (3.9-5) L 07/13/16 11:17 Albumin/Globulin Ratio 1.3 % 07/13/16 11:17 Lipase 29 units/L (13-60) 07/10/16 14:48 Urine Color [place] (Yellow) 07/10/16 14:41 Urine Turbidity Clear (Clear) 07/10/16 14:41 Urine pH 5.0 (5.0-7.0) 07/10/16 14:41 Ur Specific [place] 1.017 (1.003-1.030) 07/10/16 14:41 Urine Protein <15 mg/dl mg/dL (Negative) 07/10/16 14:41 Urine Glucose (UA) >=500 mg/dL (Negative) 07/10/16 14:41 Urine Ketones Neg mg/dL (Negative) 07/10/16 14:41 Urine Blood Neg (Negative) 07/10/16 14:41 Urine Nitrite Neg (Negative) 07/10/16 14:41 Urine Bilirubin Neg (Negative) 07/10/16 14:41 Urine Urobilinogen 4.0 mg/dL (<2.0) 07/10/16 14:41 Ur Leukocyte Esterase Neg (Negative) 07/10/16 14:41 Urine WBC (Auto) 1.0 /HPF (0.0-6.0) 07/10/16 14:41 Urine RBC (Auto) 3.0 /HPF (0.0-6.0) 07/10/16 14:41 U Epithel Cells (Auto) 1.0 /HPF (0-13.0) 07/10/16 14:41 Calcium Oxalate Crystal 2+ 07/10/16 14:41 Urine Mucus Few /HPF 07/10/16 14:41
--- NOTE | 2016-07-14 01:09 | Consultation ---
REFERRING PHYSICIAN: Valery Zimmerman MD REASON FOR CONSULTATION: Pancreatic mass. HISTORY OF PRESENT ILLNESS: The patient is a very pleasant 66-year-old male who has not seen a physician in a long time. He started having pain and weight loss. He states that he may have lost about 8-10 pounds in the last 2 weeks, but he is not able to quantify it. He having abdominal pain, weakness. He presented to the Emergency Room where he was found to have icterus. He underwent a CT of the abdomen on 07/10/2016. Findings showed evidence of a diffuse marked intra and extrahepatic biliary ductal dilatation with extensive pancreatic ductal dilatation. There was a mass in the head of the pancreas, which was ill-defined, about 2-3 cm. There were some lesions in the kidney area. The patient was also found to have elevated bilirubin and his bilirubins were almost 6. He has mild neutropenia, white count of 3.2, platelet count of 145,000. His LFTs were elevated with an alkaline phosphatase of 1101, ALT 622, AST 251. The patient was seen by Gastroenterology. Dr. Temo Raphael saw the patient. The patient underwent ERCP on 07/11/2016. He was found to have dilated pancreatic duct, distal CBD stricture. Brushings were performed. The patient did undergo a stent placement. He feels better. A CA 19-9 has been ordered, results pending. Brushing results pending. Oncology consult was called. PAST MEDICAL HISTORY: Otherwise, unremarkable. SOCIAL HISTORY: He used to smoke, quit about 5 years ago. Occasional alcohol use. PHYSICAL EXAMINATION: GENERAL: The patient is a very pleasant male. He is slight in build. HEENT: Reveals mild icterus in the conjunctivae. CHEST: Clear bilaterally. CARDIOVASCULAR: Regular rate and rhythm. ABDOMEN: Soft, no obvious organomegaly noted. EXTREMITIES: No clubbing, cyanosis, or edema. LABORATORY DATA: As mentioned in history of present illness. The patient also has evidence of elevated blood sugar at about 150-250. ASSESSMENT: 1. Pancreatic mass with biliary dilatation, highly suggestive of malignancy. Awaiting brushings. 2. Jaundice secondary to pancreatic mass. 3. Status post ERCP and stent placement. 4. New onset diabetes. RECOMMENDATIONS AND PLAN: I at this time, I am awaiting the brushings and washings. If those are unremarkable, may need to get a biopsy of the mass via endoscopic ultrasound or CT-guided. We will also follow his CA 19-9. We will follow the patient. JOB# [id number] MARJORIE/SHIRIN
[2016-07-14] MEDS: NOVOLOG SUB-Q SCH ×3 (08:22→17:45)
--- NOTE | 2016-07-14 08:50 | Hem/Onc Progress Note ---
Assessment and Plan Cytology did not show malignancy. Discussed with Bonnie Casanova who will discuss with Dr. Raphael about possibly endoscopic ultrasound guided biopsy. Awaiting CA 199. Discussed with patient's . Subjective Date of service: 07/14/16 Interval history: Patient's states he is better. Objective - Exam Narrative Exam: Stable findings - Constitutional Vitals: Last Vital Signs Temp 98.5 F 07/14/16 07:55 Pulse 68 07/14/16 07:55 Resp 22 07/14/16 07:55 BP 149/82 07/14/16 07:55 Pulse Ox 99 07/14/16 07:55 Pain Intensity (0-10): denies any pain General appearance: no acute distress - Labs Lab Results: Laboratory Results - last 24 hr 07/13/16 07/13/16 07/13/16 11:17 12:35 16:56 Sodium 133 L Potassium 4.1 Chloride 96.5 L Carbon Dioxide 25 Anion Gap 16 BUN 22 H Creatinine 0.8 Estimated GFR > 60 BUN/Creatinine Ratio 27.50 Glucose 381 H POC Glucose 255 H 246 H Calcium 9.3 Total Bilirubin 3.5 H AST 197 H ALT 470 H Alkaline Phosphatase 800 H Total Protein 6.1 L Albumin 3.4 L Albumin/Globulin Ratio 1.3 07/13/16 07/14/16 21:33 05:05 Sodium Potassium Chloride Carbon Dioxide Anion Gap BUN Creatinine Estimated GFR BUN/Creatinine Ratio Glucose POC Glucose 297 H 162 H Calcium Total Bilirubin AST ALT Alkaline Phosphatase Total Protein Albumin Albumin/Globulin Ratio
[2016-07-14] MEDS: LOVENOX SUB-Q SCH (10:38)
--- NOTE | 2016-07-14 11:03 | Gastroenterology Progress Note ---
Assessment and Plan GI: pt s/p ercp w/ stent placement - brushing benign, ca 19-9 pending - lft's improving - pt will require EUS as outpt - pt working on emergent insurance as told to continue to do so - phone number et given to family, will schedule f/u outpt 1-2 weeks - ok to d/c from GI standpoint, call if needed Subjective Date of service: 07/14/16 Interval history: -pt w/o complaints overnight Objective - Constitutional Vitals: Temp Pulse Resp BP Pulse Ox 98.5 F 68 22 149/82 99 07/14/16 07:55 07/14/16 07:55 07/14/16 07:55 07/14/16 07:55 07/14/16 07:55 General appearance: no acute distress - EENT Eyes: PERRL - Respiratory Respiratory: bilateral: CTA - Cardiovascular Rhythm: regular Heart Sounds: Present: S1 & S2 - Gastrointestinal General gastrointestinal: Present: soft, non-tender, non-distended - Labs CBC & Chem 7: 07/12/16 16:08 07/13/16 11:17 Labs: Laboratory Results - last 24 hr 07/13/16 07/13/16 07/13/16 11:17 12:35 16:56 Sodium 133 L Potassium 4.1 Chloride 96.5 L Carbon Dioxide 25 Anion Gap 16 BUN 22 H Creatinine 0.8 Estimated GFR > 60 BUN/Creatinine Ratio 27.50 Glucose 381 H POC Glucose 255 H 246 H Calcium 9.3 Total Bilirubin 3.5 H AST 197 H ALT 470 H Alkaline Phosphatase 800 H Total Protein 6.1 L Albumin 3.4 L Albumin/Globulin Ratio 1.3 07/13/16 07/14/16 21:33 05:05 Sodium Potassium Chloride Carbon Dioxide Anion Gap BUN Creatinine Estimated GFR BUN/Creatinine Ratio Glucose POC Glucose 297 H 162 H Calcium Total Bilirubin AST ALT Alkaline Phosphatase Total Protein Albumin Albumin/Globulin Ratio
[2016-07-14 11:15] LABS: Alanine Aminotransferase 355 units/L (7-56); Albumin 3.4 g/dL (3.9-5); Albumin/Globulin Ratio 1.4 %; Alkaline Phosphatase 693 units/L (35-129); Anion Gap 15 mmol/L; Bilirubin,Total 2.9 mg/dL (0.1-1.2); Blood Urea Nitrogen 18 mg/dL (9-20); Carbon Dioxide 25 mmol/L (22-30); Chloride 101.5 mmol/L (98-107); Glucose 267 mg/dL (75-100); Potassium 3.8 mmol/L (3.6-5.0); Sodium 138 mmol/L (137-145); Total Protein 5.9 g/dL (6.3-8.2)
--- NOTE | 2016-07-14 12:03 | Discharge Summary ---
Providers - Providers Date of Admission: 07/10/16 22:53 Date of discharge: 07/14/16 Attending physician: BON LAZAR 07/13/16 08:58 Consult to Physician [CONS] Routine Consulting Provider: DURAN HONG Reason For Exam: pancreatic cancer Place consult to:: Oncology Notified:: Yes Primary care physician: MEDIA TECHNICIAN Hospitalization Condition: Stable Disposition: DISCHARGED TO HOME OR SELFCARE Time spent for discharge: 35 min Exam - Constitutional Vitals: Temp Pulse Resp BP Pulse Ox 98.5 F 68 22 149/82 99 07/14/16 07:55 07/14/16 07:55 07/14/16 07:55 07/14/16 07:55 07/14/16 07:55 Plan Activity: advance as tolerated Diet: low cholesterol, low salt, diabetic Follow up with: PRIMARY CARE, [Primary Care Provider] - 7 Days FARHEEN ARRIAGA MD [Staff Physician] - 14 Days Prescriptions: metFORMIN [Glucophage] 500 mg PO BID #60 tablet
[2016-07-14 15:37] VITALS: BP 128/79
== END 2016-07-14 18:30 | disposition home or self-care (01) | DRG 445 ==
LOC: ED 12:11 → 3A 22:53
PROVIDERS: ADMIT Internal Medicine; ATTEND Internal Medicine
PROC: BF181ZZ Fluoroscopy of Pancreatic Ducts using Low Osmolar Contrast (ICD-10-PCS; principal; 2016-07-11)
PROC: 0FB98ZX Excision of Common Bile Duct, Via Natural or Artificial Opening Endoscopic, Diagnostic (ICD-10-PCS; principal; 2016-07-11)
PROC: 0F798DZ Dilation of Common Bile Duct with Intraluminal Device, Via Natural or Artificial Opening Endoscopic (ICD-10-PCS; principal; 2016-07-11)
DX: K83.1 Obstruction of bile duct (principal); R17 Unspecified jaundice; I10 Essential (primary) hypertension; E11.9 Type 2 diabetes mellitus without complications; K86.89 Other specified diseases of pancreas; Z82.49 Family history of ischemic heart disease and other diseases of the circulatory system; Z72.89 Other problems related to lifestyle; Z79.4 Long term (current) use of insulin
CPT/HCPCS: 36415; 74177; 74330; 80048; 80053; 81001; 82962; 83036; 83690; 85025; 85027; 85610; 86301; 88104; 88112; 90686; C1726; C2625; J1610; J1650; J1815; J2250; J2270; J2704; J3010; Q9967

== ENCOUNTER 2016-10-22 19:36 | Inpatient (IN) | payer OTHER ==
[2016-10-22 20:24] LABS: Basophils % (Auto) 2.8 % (0.0-1.8); Eosinophils % (Auto) 4.6 % (0.0-4.3); Hematocrit 38.9 % (35.5-45.6); Hemoglobin 12.4 gm/dl (11.8-15.2); Mean Corpuscular HGB Conc 32 % (32-34); Mean Corpuscular Volume 81 fl (84-94); Platelet Count 179 K/mm3 (140-440); Red Blood Count 4.83 M/mm3 (3.65-5.03); Red Cell Distribution Width 15.2 % (13.2-15.2); White Blood Count 4.4 K/mm3 (4.5-11.0)
[2016-10-22 20:28] LABS: Alanine Aminotransferase 36 units/L (7-56); Albumin 3.7 g/dL (3.9-5); Albumin/Globulin Ratio 1.2 %; Alkaline Phosphatase 186 units/L (35-129); Anion Gap 15 mmol/L; BUN/Creatinine Ratio 13.63; Blood Urea Nitrogen 15 mg/dL (9-20); Calcium 8.8 mg/dL (8.4-10.2); Carbon Dioxide 29 mmol/L (22-30); Chloride 98.3 mmol/L (98-107); Glucose 117 mg/dL (75-100); Lipase 5 units/L (13-60); Potassium 3.6 mmol/L (3.6-5.0); Sodium 139 mmol/L (137-145); Total Protein 6.7 g/dL (6.3-8.2)
[2016-10-22 20:37] LABS: Mean Corpuscular Hemoglobin 26 pg (28-32)
[2016-10-22 20:52] LABS: Bilirubin,Urine NEG (Negative); Blood,Urine NEG (Negative); Ketones,Urine NEG (Negative); Leukocyte Esterase,Urine NEG (Negative); Mucus,Urine 1+ /HPF; Nitrite,Urine NEG (Negative); Protein,Urine <15 mg/dL mg/dL (Negative); Urobilinogen,Urine < 2.0 mg/dL (<2.0)
--- NOTE | 2016-10-22 22:21 | Emergency Department Report ---
HPI - General Chief Complaint: Abdominal Pain Time Seen by Provider: 10/22/16 22:15 - HPI HPI: Room 24 The patient is a 66-year-old male presenting with a chief complaint of abdominal pain. The patient states for 2 weeks his worsening epigastric abdominal pain. The patient was admitted to the hospital in June for abdominal pain and weight loss and was discovered he had a probable pancreatic head mass which was believed to be malignant in nature. This has not yet been confirmed with the patient is awaiting an endoscopic ultrasound as an outpatient. Since his endoscopy in June the patient is also complaining of intermittent chest pain that feels "like something is stuck" in his chest. Patient does admit to shortness of breath and nausea but denies vomiting or diaphoresis. Patient also admits to a subjective fever. The patient currently gives his pain a score of 8/10. The patient has never had a cardiac catheterization. Location: [see above] Duration: [see above] Quality: Aching Severity: 8/10 Modifying factors: [see above] Context: [see above] Mode of transportation: [not driving] ED Past Medical Hx - Past Medical History Hx Hypertension: Yes Additional medical history: weakness - Surgical History Past Surgical History?: No - Family History Family history: no significant - Social History Smoking Status: Never Smoker Substance Use Type: Alcohol (rarely) - Medications Home Medications: Home Medications Medication Instructions Recorded Confirmed Last Taken Type metFORMIN [Glucophage] 500 mg PO BID #60 tablet 07/14/16 10/22/16 Unknown Rx amLODIPine [Norvasc] 5 mg PO DAILY 10/22/16 10/22/16 Unknown History ED Review of Systems ROS: Stated complaint: ABD PAIN Other details as noted in HPI Comment: All other systems reviewed and negative Constitutional: denies: diaphoresis Eyes: denies: eye pain, eye discharge, vision change ENT: denies: ear pain, throat pain Respiratory: shortness of breath Cardiovascular: chest pain Endocrine: no symptoms reported Gastrointestinal: abdominal pain, nausea, diarrhea. denies: vomiting Genitourinary: denies: urgency, dysuria Musculoskeletal: denies: back pain, joint swelling, arthralgia Skin: denies: rash, lesions Neurological: denies: headache, weakness, paresthesias Psychiatric: denies: anxiety, depression Hematological/Lymphatic: denies: easy bleeding, easy bruising Physical Exam - Physical Exam Vital Signs: Vital Signs 10/22/16 19:38 Temperature 98.4 F Pulse Rate 59 L Respiratory 18 Rate Blood Pressure 144/89 O2 Sat by Pulse 100 Oximetry Physical Exam: GENERAL: The patient is well-developed well-nourished male lying on stretcher not appearing to be in acute distress. [] HEENT: Normocephalic. Atraumatic. Extraocular motions are intact. Patient has moist mucous membranes. NECK: Supple. Trachea midline CHEST/LUNGS: Clear to auscultation. There is no respiratory distress noted. HEART/CARDIOVASCULAR: Regular. There is no tachycardia. There is no gallop rub or murmur. ABDOMEN: Abdomen is soft, with mild tenderness to palpation in the midepigastric , right upper quadrant and right lower quadrant. Patient has normal bowel sounds. There is no abdominal distention. SKIN: There is no rash. There is no edema. There is no diaphoresis. NEURO: The patient is awake, alert, and oriented. The patient is cooperative. The patient has normal speech MUSCULOSKELETAL: There is no evidence of acute injury. ED Course Vital Signs 10/22/16 19:38 Temperature 98.4 F Pulse Rate 59 L Respiratory 18 Rate Blood Pressure 144/89 O2 Sat by Pulse 100 Oximetry - Consultations Consultation #1: 10/22/16 22:35 gastroenterology paged 10/22/16 23:[address] Raphael-recommends a noncontrasted CT abdomen and pelvis in the ED and he will consult ED Medical Decision Making - Lab Data Result diagrams: 10/22/16 19:56 10/22/16 19:56 Laboratory Tests 10/22/16 10/22/16 10/22/16 19:56 19:56 20:20 WBC 4.4 L RBC 4.83 Hgb 12.4 Hct 38.9 MCV 81 L MCH 26 L MCHC 32 RDW 15.2 Plt Count 179 Lymph % (Auto) 23.0 [place] % (Auto) 8.6 H Eos % (Auto) 4.6 H Baso % (Auto) 2.8 H Lymph # 1.0 L [place] # 0.4 Eos # 0.2 Baso # 0.1 Seg Neutrophils % 61.0 Seg Neutrophils # 2.7 Sodium 139 Potassium 3.6 Chloride 98.3 Carbon Dioxide 29 Anion Gap 15 BUN 15 Creatinine 1.1 Estimated GFR > 60 BUN/Creatinine Ratio 13.63 Glucose 117 H Calcium 8.8 Total Bilirubin 0.30 AST 26 ALT 36 Alkaline Phosphatase 186 H Troponin T < 0.010 Total Protein 6.7 Albumin 3.7 L Albumin/Globulin Ratio 1.2 Lipase 5 L Urine Color Yellow Urine Turbidity Clear Urine pH 5.0 Ur Specific [place] 1.021 Urine Protein <15 mg/dl Urine Glucose (UA) 50 Urine Ketones Neg Urine Blood Neg Urine Nitrite Neg Urine Bilirubin Neg Urine Urobilinogen < 2.0 Ur Leukocyte Esterase Neg Urine WBC (Auto) 2.0 Urine RBC (Auto) 97.0 Calcium Oxalate Crystal 3+ Urine Mucus 1+ Urine Yeast (Budding) Few - EKG Data -: EKG Interpreted by Me EKG shows normal: sinus rhythm Rate: bradycardia (55 bpm) - EKG Data When compared to previous EKG there are: previous EKG unavailable Interpretation: nonspecific ST-T wave jose (deep T-wave inversions in leads V3, V4. Biphasic T waves in leads 2, 3, aVF, V5.) - Radiology Data Radiology results: report reviewed (CT abdomen and pelvis), image reviewed ( chest x-ray, CT abdomen and pelvis) interpreted by me: Chest x-ray-no focal infiltrates, no pneumothorax - Differential Diagnosis pancreatic CA, ACS, GERD, pericarditis Critical care attestation.: If time is entered above; I have spent that time in minutes in the direct care of this critically ill patient, excluding procedure time. ED Disposition Clinical Impression: Abdominal pain, Chest pain, T wave inversion in EKG, Candiduria, Pancreatic cancer Disposition: OP ADMIT IP TO THIS HOSP Is pt being admited?: Yes Does the pt Need Aspirin: Yes Condition: Fair Instructions: Chest Pain (ED) Referrals: PRIMARY CARE, [Primary Care Provider] - 3-5 Days Time of Disposition: 01:53 (hospitalist paged)
[2016-10-22] MEDS ORDERED: SUBLIMAZE IV ONE (22:31)
[2016-10-22] MEDS ORDERED: ZOFRAN IV ONE (22:31)
[2016-10-22] MEDS ORDERED: DIFLUCAN PO ONE (23:56)
--- NOTE | 2016-10-23 01:25 | Cat Scan Report ---
FINAL REPORT PROCEDURE: CT ABDOMEN PELVIS WO CON TECHNIQUE: Computerized axial tomography of the abdomen and pelvis was performed without intravenous contrast. This study is performed without intravascular contrast material and its sensitivity for abdominal and pelvic pathology, including neoplasms, inflammation, abscess, free fluid, thrombosis, arterial dissection and infarction, is reduced compared with a contrast enhanced study. HISTORY: epigastric, right-sided abdominal pain. COMPARISON: 07/10/2016 FINDINGS: Mild atelectasis identified in both lower lungs. The heart size is normal. Mild biliary ductal dilatation is noted. There are multiple areas of hypoattenuation in the liver measuring to 3 centimeters. Metastatic change is suspected. This is not fully evaluated on this study. A stent in the region of the common bile duct is identified. Spleen is not well defined on this study. The size of the spleen appears normal. The gallbladder lumen has a normal caliber. No stones are identified. Kidneys are not well evaluated. There are few stones identified in the corticomedullary region of the kidneys, these measure up to 4 millimeters. Multiple areas of hypoattenuation in the region of the kidney may represent renal cysts. This is not fully defined on this noncontrast study. The pancreas is not well evaluated on this study. There is a significant amount of soft tissue identified in the retroperitoneal region extending down into the mid abdominal area. A mass in this region is possible. Lymphadenopathy in this region is suspected. The tissues are not well defined on the examination. There is moderate gas and fecal debris throughout the colon. No definitive obstructive pattern is noted. There is slight distention of the urinary bladder. Moderate atherosclerosis of the aorta and all branching vessels. IMPRESSION: No contrast was administered, this study is very limited. There are areas of hypoattenuation throughout the liver, these measure up to 3 centimeters and metastatic change is suspected. There is some dilatation of biliary ductal system with mild pneumobilia. A common bile duct stent is identified in the region of the head of the pancreas. Large amount of soft tissue identified in the peripancreatic area, retroperitoneum extending down into the mid abdomen. Large tumor and lymphadenopathy throughout this region are suspected. This is not well defined on this noncontrast study. Multiple areas of hypoattenuation identified in both kidneys, multiple cysts are suspected, this is not fully evaluated on the examination. Moderate gas and fecal debris throughout the colon, constipation is suspected..
[2016-10-23] MEDS ORDERED: ASPIRIN PO ONE (01:53)
[2016-10-23] MEDS ORDERED: ZOFRAN IV PRN (03:58)
[2016-10-23] MEDS ORDERED: NACL 0.9% 1000 ML 1,000 ML IV SCH (04:00)
--- NOTE | 2016-10-23 06:23 | History and Physical Report ---
History of Present Illness Date of examination: 10/23/16 Date of admission: 10/23/16 03:52 Chief complaint: Chief complaint is epigastric abdominal pain and occasional chest pain History of present illness: History of present illness, patient is a 66-year-old male who has been having epigastric abdominal pain going on for some months and occasional chest pain and there is no history of shortness of breath but there is history of nausea and no vomiting, patient also complaining of history of diarrhea and weight loss. Patient had similar symptoms in June of this year and was investigated and found to have a mass in the head of the pancreas suspected to be malignancy and patient had an endoscopy done with stent placed in the biliary system and patient is waiting for outpatient endoscopic ultrasound but has been having epigastric pain since he had the endoscopy in June 2016. Past History Past Medical History: hypertension, other (PANCREATIC MASS SUSPICIOUS OF MALIGNANCY.) Past Surgical History: No surgical history Social history: Family history: no significant family history Medications and Allergies Allergies Allergy/AdvReac Type Severity Reaction Status Date / Time No Known Allergies Allergy Unverified 07/10/16 14:00 Home Medications Medication Instructions Recorded Confirmed Last Taken Type metFORMIN [Glucophage] 500 mg PO BID #60 tablet 07/14/16 10/22/16 Unknown Rx amLODIPine [Norvasc] 5 mg PO DAILY 10/22/16 10/22/16 Unknown History Active Meds: Active Medications Heparin Sodium (Porcine) (Heparin) 5,000 unit SUB-Q Q12HR [facility] Hydromorphone HCl (Dilaudid) 0.5 mg IV Q3H PRN PRN Reason: Pain , Severe (7-10) Sodium Chloride (Nacl 0.9% 1000 Ml) 1,000 mls @ 75 mls/hr IV DIRECT MARTINE Ondansetron HCl (Zofran) 4 mg IV Q6H PRN PRN Reason: Nausea And Vomiting Review of Systems Constitutional: weight loss, weakness, no weight gain, no fever, no chills, no sweats, no anorexia, no fatigue, no malaise, no lethargy, no poor appetite, no daytime sleepiness Eyes: bilateral: other (NO BILATERAL EYE SYMPTOM) Ears, nose, mouth and throat: no ear pain, no ear discharge, no decreased hearing, no nose pain, no nasal discharge, no dental pain, no mouth pain, no dysphagia, no hoarseness, no sore throat, no swelling in mouth, no post-nasal drip, no headache Cardiovascular: chest pain, high blood pressure, no orthopnea, no lightheadedness, no shortness of breath, no claudication, no leg edema Respiratory: no cough, no excessive sputum, no hemoptysis, no shortness of breath, no wheezing, no pleurisy, no pain on inspiration, no respiratory infections Gastrointestinal: abdominal pain, nausea, diarrhea, heartburn, no vomiting, no constipation, no change in bowel habits, no hematemesis, no coffee ground emesis , no hematochezia, no loss of appetite, no early satiety, no excessive gas, no jaundice, no dyspepsia/bloating, no early satiety Genitourinary Male: no dysuria, no hematuria, no urinary frequency, no urinary hesitancy, no nocturia, no incontinence, no erectile dysfunction, no impotence, no decreased libido, no testicular pain, no testicular lump, no difficulties fathering child, no polyuria, no urinary retention Rectal: no pain, no incontinence, no itching, no hemorrhoids, no flatulence Musculoskeletal: no neck stiffness, no neck pain, no shooting arm pain, no arm numbness/tingling, no low back pain, no shooting leg pain, no leg numbness/ tingling, no hot joints, no morning stiffness, no muscle weakness, no muscle cramps, no myalgias, no fractures, no loss of height, no prior amputations Integumentary: no rash, no pruritis, no redness, no sores, no wounds, no jaundice, no boils, no bullae, no lesions, no darkening of skin, no depigmentation, no acne, no dryness, no color changes, no change in hair/nails, no brittle nails, no striae, no hirsutism, no foot/leg ulcers Neurological: no transient paralysis, no paralysis, no weakness, no parathesias , no numbness, no tingling, no seizures, no syncope, no tremors, no ataxia, no lack of coordination, no headaches, no migraines, no convulsions, no aphasia, no change in speech, no change in mentation, no confusion, no memory loss, no changes in smell/taste, no balance difficulties, no motor disturbance, no sensory deficit, no double vision, no loss of vision, no hearing difficulties, no burning pain, no paralysis Psychiatric: no anxiety, no memory loss, no change in sleep habits, no sleep disturbances, no insomnia, no hypersomnia, no change in appetite, no change in libido, no suicidal ideation, no hopelessness, no anhedonia, no difficulties concentrating Endocrine: no cold intolerance, no heat intolerance, no polyphagia, no excessive thirst, no polydipsia, no polyuria, no nocturia, no flushing, no proptosis, no deepening of the voice, no thyroid mass, no palpatations, no high blood sugars, no low blood sugars Hematologic/Lymphatic: no easy bruising, no easy bleeding, no lymphadenopathy, no lymphedema, no thrombophilia Allergic/Immunologic: no urticaria, no allergic rhinitis, no persistent infections, no anaphylaxis, no angioedema, no gluten intolerance, no seasonal allergies Exam - Constitutional Vitals: Temp Pulse Resp BP Pulse Ox 98.4 F 54 L 11 L 144/95 100 10/22/16 19:38 10/23/16 06:00 10/23/16 06:00 10/23/16 06:00 10/22/16 19:38 General appearance: Present: no acute distress - EENT Eyes: Present: PERRL, EOM intact ENT: clear oral mucosa, dentition normal, no poor dentition, no edentulous - Neck Neck: Present: supple, normal ROM. Absent: enlarged thyroid, masses or JVD, carotid bruits - Respiratory Respiratory effort: normal - Cardiovascular Rhythm: regular Heart Sounds: Present: S1 & S2. Absent: gallop, systolic murmur, diastolic murmur, rub, click - Extremities Extremities: no ischemia, No edema Peripheral Pulses: within normal limits - Abdominal General gastrointestinal: Present: soft, tender, non-distended, normal bowel sounds. Absent: non-tender, distended, rigid, hypoactive bowel sounds, absent bowel sounds, hepatomegaly, splenomegaly Localized gastrointestinal: tender: epigastric periumbilical Male genitourinary: Present: deferred - Rectal Rectal Exam: deferred - Integumentary Integumentary: Present: clear, warm, dry, normal turgor. Absent: jaundice, clammy - Musculoskeletal Musculoskeletal: strength equal bilaterally - Psychiatric Psychiatric: appropriate mood/affect - Neurologic Neurologic: CNII-XII intact Results - Labs CBC & Chem 7: 10/22/16 19:56 10/22/16 19:56 Labs: Laboratory Last Values WBC 4.4 K/mm3 (4.5-11.0) L 10/22/16 19:56 RBC 4.83 M/mm3 (3.65-5.03) 10/22/16 19:56 Hgb 12.4 gm/dl (11.8-15.2) 10/22/16 19:56 Hct 38.9 % (35.5-45.6) 10/22/16 19:56 MCV 81 fl (84-94) L 10/22/16 19:56 MCH 26 pg (28-32) L 10/22/16 19:56 MCHC 32 % (32-34) 10/22/16 19:56 RDW 15.2 % (13.2-15.2) 10/22/16 19:56 Plt Count 179 K/mm3 (140-440) 10/22/16 19:56 Lymph % (Auto) 23.0 % (13.4-35.0) 10/22/16 19:56 [place] % (Auto) 8.6 % (0.0-7.3) H 10/22/16 19:56 Eos % (Auto) 4.6 % (0.0-4.3) H 10/22/16 19:56 Baso % (Auto) 2.8 % (0.0-1.8) H 10/22/16 19:56 Lymph # 1.0 K/mm3 (1.2-5.4) L 10/22/16 19:56 [place] # 0.4 K/mm3 (0.0-0.8) 10/22/16 19:56 Eos # 0.2 K/mm3 (0.0-0.4) 10/22/16 19:56 Baso # 0.1 K/mm3 (0.0-0.1) 10/22/16 19:56 Seg Neutrophils % 61.0 % (40.0-70.0) 10/22/16 19:56 Seg Neutrophils # 2.7 K/mm3 (1.8-7.7) 10/22/16 19:56 Sodium 139 mmol/L (137-145) 10/22/16 19:56 Potassium 3.6 mmol/L (3.6-5.0) 10/22/16 19:56 Chloride 98.3 mmol/L (98-107) 10/22/16 19:56 Carbon Dioxide 29 mmol/L (22-30) 10/22/16 19:56 Anion Gap 15 mmol/L 10/22/16 19:56 BUN 15 mg/dL (9-20) 10/22/16 19:56 Creatinine 1.1 mg/dL (0.8-1.5) 10/22/16 19:56 Estimated GFR > 60 ml/min 10/22/16 19:56 BUN/Creatinine Ratio 13.63 % 10/22/16 19:56 Glucose 117 mg/dL (75-100) H 10/22/16 19:56 Calcium 8.8 mg/dL (8.4-10.2) 10/22/16 19:56 Total Bilirubin 0.30 mg/dL (0.1-1.2) 10/22/16 19:56 AST 26 units/L (5-40) 10/22/16 19:56 ALT 36 units/L (7-56) 10/22/16 19:56 Alkaline Phosphatase 186 units/L (35-129) H 10/22/16 19:56 Troponin T < 0.010 ng/mL (0.00-0.029) 10/23/16 02:07 Total Protein 6.7 g/dL (6.3-8.2) 10/22/16 19:56 Albumin 3.7 g/dL (3.9-5) L 10/22/16 19:56 Albumin/Globulin Ratio 1.2 % 10/22/16 19:56 Lipase 5 units/L (13-60) L 10/22/16 19:56 Urine Color Yellow (Yellow) 10/22/16 20:20 Urine Turbidity Clear (Clear) 10/22/16 20:20 Urine pH 5.0 (5.0-7.0) 10/22/16 20:20 Ur Specific [place] 1.021 (1.003-1.030) 10/22/16 20:20 Urine Protein <15 mg/dl mg/dL (Negative) 10/22/16 20:20 Urine Glucose (UA) 50 mg/dL (Negative) 10/22/16 20:20 Urine Ketones Neg mg/dL (Negative) 10/22/16 20:20 Urine Blood Neg (Negative) 10/22/16 20:20 Urine Nitrite Neg (Negative) 10/22/16 20:20 Urine Bilirubin Neg (Negative) 10/22/16 20:20 Urine Urobilinogen < 2.0 mg/dL (<2.0) 10/22/16 20:20 Ur Leukocyte Esterase Neg (Negative) 10/22/16 20:20 Urine WBC (Auto) 2.0 /HPF (0.0-6.0) 10/22/16 20:20 Urine RBC (Auto) 97.0 /HPF (0.0-6.0) 10/22/16 20:20 Calcium Oxalate Crystal 3+ 10/22/16 20:20 Urine Mucus 1+ /HPF 10/22/16 20:20 Urine Yeast (Budding) Few /HPF 10/22/16 20:20 Assessment and Plan - Patient Problems (1) Pancreatic mass Current Visit: Yes Status: Acute (2) Abdominal pain Current Visit: Yes Status: Acute Qualifiers: Abdominal location: A Plan to address problem: Patient will be admitted to medical floor I will be on IV morphine 2 mg every 3 hours as needed for pain and IV Zofran 4 mg every 6 hours as needed for nausea vomiting, patient will be on IV normal saline at 75 mL an hour I'll will continue GI consult with Dr. Temo Raphael. Patient will have cardiac enzyme checked every 6 hours 2 more levels and will be on Nitropaste half inch to anterior chest wall every 6 hours, patient will be on IV Protonix 40 mg daily (3) Chest pain Current Visit: Yes Status: Acute Qualifiers: Chest pain type: C Ischemic chest pain type: I
--- NOTE | 2016-10-23 07:37 | XRay Report ---
AP CHEST: HISTORY: chest pain AP view of the chest demonstrates a normal mediastinal and cardiac contour with clear lungs and normal bony and soft tissue structures. IMPRESSION: Unremarkable AP chest.
[2016-10-23 13:53] LABS: Creatine Kinase MB 1.7 ng/mL (0.0-4.0)
[2016-10-23 13:54] LABS: Creatine Kinase 157 units/L (55-170)
[2016-10-23] MEDS ORDERED: D50W (25GM) IV PRN (14:03)
--- NOTE | 2016-10-23 14:26 | Gastroenterology Consultation ---
History of Present Illness - Reason for Consult Consult date: 10/23/16 pancreatic mass Requesting physician: MARGARITA JONES - History of Present Illness Patient is a 66 y/o male who is known to our group. He was hospitalized in for a probable pancreatic lesion in the head of the pancreas suspected to be malignancy and underwent an ERCP with stent placement and brushings. Cytology was benign and CA 19-9 normal. He has continued wt loss and now has developed abd pain with N/V and occasional CP. This afternoon pt was resting in bed, no acute distress noted. Family at bedside. Pt states abd pain is still present but has improved from yesterday. He still c/o nausea and reports vomiting x 1 episode so far today. Discussed with pt the need for an ERCP to exchange stent, pt is agreeable. PMH significant for HTN. Past History Past Medical History: hypertension, other (PANCREATIC MASS SUSPICIOUS OF MALIGNANCY.) Past Surgical History: No surgical history Social history: Family history: no significant family history Medications and Allergies Allergies Allergy/AdvReac Type Severity Reaction Status Date / Time No Known Allergies Allergy Unverified 07/10/16 14:00 Home Medications Medication Instructions Recorded Confirmed Last Taken Type metFORMIN [Glucophage] 500 mg PO BID #60 tablet 07/14/16 10/22/16 Unknown Rx amLODIPine [Norvasc] 5 mg PO DAILY 10/22/16 10/22/16 Unknown History Active Meds: Active Medications Amlodipine Besylate (Norvasc) 5 mg PO DAILY [facility] Dextrose (D50w (25gm)) 50 ml IV PRN PRN PRN Reason: Hypoglycemia Heparin Sodium (Porcine) (Heparin) 5,000 unit SUB-Q Q12HR MARTINE Hydromorphone HCl (Dilaudid) 0.5 mg IV Q3H PRN PRN Reason: Pain , Severe (7-10) Sodium Chloride (Nacl 0.9% 1000 Ml) 1,000 mls @ 75 mls/hr IV DIRECT MARTINE Insulin Aspart (Novolog) 0 units SUB-Q ACHS MARTINE PRN Reason: Protocol Metformin HCl (Glucophage) 500 mg PO BID MARTINE Ondansetron HCl (Zofran) 4 mg IV Q6H PRN PRN Reason: Nausea And Vomiting Review of Systems - Review of Systems Constitutional: weight loss Cardiovascular: chest pain (substernal) Gastrointestinal: abdominal pain, nausea, vomiting Exam - Constitutional Vital Signs: Temp Pulse Resp BP Pulse Ox 98.8 F 55 L 18 148/95 99 10/23/16 11:05 10/23/16 11:05 10/23/16 11:05 10/23/16 11:05 10/23/16 10:29 General appearance: no acute distress, cachectic - EENT Eyes: PERRL, EOM intact ENT: hearing intact - Neck Neck: normal ROM - Respiratory Respiratory: bilateral: CTA - Cardiovascular Rhythm: regular Heart Sounds: Present: S1 & S2 Extremities: No edema - Gastrointestinal General gastrointestinal: Present: soft, tender (generalized), non-distended, normal bowel sounds - Integumentary Integumentary: Present: warm, dry - Neurologic Neurological: alert and oriented x3 - Psychiatric Psychiatric: appropriate mood/affect, cooperative - Labs CBC & Chem 7: 10/22/16 19:56 10/22/16 19:56 Lab Results: Laboratory Results - last 24 hr 10/23/16 12:30 Total Creatine Kinase 157 CK-MB (CK-2) 1.7 CK-MB (CK-2) Rel Index 1.0 Troponin T < 0.010 Assessment and Plan 1. pancreatic mass 2. abd pain 3. chest pain -afebrile -troponins- negative -s/p ERCP with stent placement and brushing 06/30 -cytology benign -CA19-9 normal -pt with continued wt loss and now abd pain w/ N/V -continue supportive care -Keep NPO after MN -Will schedule for ERCP with stent exchange for tomorrow if okay with cardiac team -hold am dose of heparin -PT/INR in am -pt will require further evaluation at a tertiary center of the pancreatic mass upon d/c with an EUS vs surgical evaluation -will follow
--- NOTE | 2016-10-23 17:54 | Admit Criteria Form ---
Admission Criteria Documentation: ABDOMINAL PAIN Clinical Indications for Admission to Inpatient Care (Place 'X' for any and all applicable criteria): Admission is indicated for ANY ONE of the following(1)(2)(3)(4)(5): [X ]I. Inpatient admission required rather than observation care (Also use Abdominal Pain: Observation Care, as appropriate) because of ANY ONE of the following: [ ]a) Severe pain requiring acute inpatient management [X ]b) Identification of etiology/finding that requires inpatient care (eg, aortic dissection, free air) [ ]c) Absent bowel sounds with complete ileus(6) [ ]d) Suspected toxic megacolon [ ]e) Severe electrolyte abnormalities requiring inpatient care [ ]f) High fever or infection requiring inpatient admission as indicated by ANY ONE of following(7)(8): [ ] i) Appropriate outpatient or observational care antimicrobial treatment unavailable, not effective, or not feasible [ ] ii) Documented bacteremia [ ] iii) Temperature > 104.9 degrees F (oral) [ ] iv) T >103.1 F (oral) or < 96.8 F(rectal) that does not respond to all emergency treatment measures [ ]g) Signs of intestinal obstruction [B] [ ]h) Hemodynamic instability [ ]i) IV fluid to replace significant ongoing losses (greater than 3 L/m2 per day) (12)(13) [ ]j) Percutaneous or open drainage (eg, abscess, biliary tract ) procedures [ ]k) Parenteral nutrition regimen that must be implemented on inpatient basis [ ]l) Other condition,treatment or monitoring requiring inpatient admission. [ ]II. Peritoneal signs present [ ]III. Surgery needed that cannot be performed on an ambulatory basis. [ ]IV. Evaluation requires patient to not eat or drink for extended period ( eg, more than 24 hours). [ ]V. Contraindications and/or Inappropriate clinical situations for Observational Care in patients with abdominal pain, when ANY ONE of the following is required: [ ]a) Thorough evaluation is required to prevent catastrophic events due to delays in diagnosing (e.g.Mesenteric ischemia) 1,3 [ ]b) Patient with severe pathology or with chronic symptoms unlikely to improve in the ED stay (3) [ ]. General contraindications and/or Inappropriate clinical situations for Observational Care in patients with abdominal pain, when ANY ONE of the following is required: [ ]a) Prediction of prolongation of LOS based on ANY ONE of the following may be considered as a contraindication for observational care 2, 3, 4, 5, 6, 7, 8, 9, 10, 11 [ ]i) Age > 65 yrs. [ ]ii) Patient arriving by ambulance [ ]iii) Patient with high acuity [ ]iv) Patient requiring vital sign monitoring [ ]v) Patient on IV medication [ ]b) Systolic blood pressures 180mmHg 3,12 [ ]c) Patient with altered mental status including delirium and other alteration of consciousness, (3) [ ]d) Patient whose discharge disposition will be to a [facility] home or rehabilitation home should not be managed in Emergency Department Observation Unit. CMS rule requires 3 days hospital stay before such placement.3,13 [ ]e) Patient with failure to thrive due to broad array of etiologies 3,16,17 [ ]f) Inability to ambulate 3,14 Extended stay beyond goal length of stay may be needed for(2)(3): [ ]a) Persistent abdominal pain with suspected intra-abdominal process [ ]b) Diagnosed condition requiring continued stay (e.g., pancreatitis, complicated diverticulitis) [ ]c) Surgery (e.g., colectomy) The original [facility] content created by [employer] has been revised. The portions of the content which have been revised are identified through the use of italic text or in bold, and [facility] has neither reviewed nor approved the modified material.All other unmodified content is copyright 1[employer]618 [facility]. Please see references footnoted in the original [employer] [facility] edition 2016 Admission Criteria Met: Yes
[2016-10-23 18:47] LABS: Creatine Kinase MB 1.3 ng/mL (0.0-4.0)
[2016-10-23 18:48] LABS: Creatine Kinase 134 units/L (55-170)
[2016-10-23] MEDS: NOVOLOG SUB-Q SCH ×2 (19:21→23:58)
[2016-10-23] MEDS: HEPARIN SUB-Q SCH ×2 (19:23→21:57)
[2016-10-23] MEDS: GLUCOPHAGE PO SCH (21:57)
[2016-10-23] MEDS: DILAUDID IV PRN (23:43)
[2016-10-24 05:24] LABS: Hematocrit 42.9 % (35.5-45.6); Mean Corpuscular HGB Conc 33 % (32-34); Mean Corpuscular Hemoglobin 26 pg (28-32); Mean Corpuscular Volume 81 fl (84-94); Platelet Count 166 K/mm3 (140-440); Red Blood Count 5.32 M/mm3 (3.65-5.03); Red Cell Distribution Width 15.4 % (13.2-15.2); White Blood Count 14.5 K/mm3 (4.5-11.0)
[2016-10-24 05:38] LABS: Anion Gap 16 mmol/L; Blood Urea Nitrogen 16 mg/dL (9-20); Calcium 8.5 mg/dL (8.4-10.2); Carbon Dioxide 27 mmol/L (22-30); Chloride 96.4 mmol/L (98-107); Glucose 104 mg/dL (75-100); Potassium 3.3 mmol/L (3.6-5.0); Sodium 136 mmol/L (137-145)
--- NOTE | 2016-10-24 07:39 | Progress Note ---
<KATIUSKA ROCK - Last Filed: 10/24/16 11:30> Assessment and Plan Assessment and plan: Assessment and Plan [address] of the abdomen shows pancreatic lesions in the head of the pancreas. Metastatic change is Suspected. Patient is scheduled this AM for ERCP GI consulted Oncology consulted IV fluid hydration 2. Abdominal pain Pain control with morphine IV fluid hydration Zofran when necessary ordered GI consulted Patient is scheduled this AM for ERCP 3. Hypertension We will review home antihypertensive medication 4. Diabetes diabetes mellitus Accu-Chek before meals and at bedtime Sliding scale insulin/NovoLog 5.Hypokalemia We will replace with 40MEQ of potassium 6.Hyponatremia Patient started on IV normal saline that should be correct it 7. GERD Started on Protonix DVT prophylaxis Lovenox Patient full code History Interval history: Patient has uneventful overnight. Denies any pain at present time Hospitalist Physical - Constitutional Vitals: Temp Pulse Resp BP Pulse Ox 98.1 F 65 18 149/87 97 10/24/16 05:00 10/24/16 05:00 10/24/16 05:00 10/24/16 05:00 10/24/16 05:00 General appearance: Present: no acute distress - EENT Eyes: Present: PERRL ENT: hearing intact - Neck Neck: Present: supple - Respiratory Respiratory effort: normal - Cardiovascular Heart rate: 64 Rhythm: regular - Extremities Extremities: no ischemia Peripheral Pulses: within normal limits - Abdominal General gastrointestinal: soft, non-tender - Integumentary Integumentary: Present: clear, warm, dry - Psychiatric Psychiatric: appropriate mood/affect - Neurologic Neurologic: CNII-XII intact - Allied Health Allied health notes reviewed: nursing Results - Labs CBC & Chem 7: 10/24/16 04:23 10/24/16 04:23 Labs: Laboratory Last Values WBC 14.5 K/mm3 (4.5-11.0) H 10/24/16 04:23 RBC 5.32 M/mm3 (3.65-5.03) H 10/24/16 04:23 Hgb 14.0 gm/dl (11.8-15.2) 10/24/16 04:23 Hct 42.9 % (35.5-45.6) 10/24/16 04:23 MCV 81 fl (84-94) L 10/24/16 04:23 MCH 26 pg (28-32) L 10/24/16 04:23 MCHC 33 % (32-34) 10/24/16 04:23 RDW 15.4 % (13.2-15.2) H 10/24/16 04:23 Plt Count 166 K/mm3 (140-440) 10/24/16 04:23 Lymph % (Auto) 23.0 % (13.4-35.0) 10/22/16 19:56 Walsh % (Auto) 8.6 % (0.0-7.3) H 10/22/16 19:56 Eos % (Auto) 4.6 % (0.0-4.3) H 10/22/16 19:56 Baso % (Auto) 2.8 % (0.0-1.8) H 10/22/16 19:56 Lymph # 1.0 K/mm3 (1.2-5.4) L 10/22/16 19:56 Walsh # 0.4 K/mm3 (0.0-0.8) 10/22/16 19:56 Eos # 0.2 K/mm3 (0.0-0.4) 10/22/16 19:56 Baso # 0.1 K/mm3 (0.0-0.1) 10/22/16 19:56 Seg Neutrophils % 61.0 % (40.0-70.0) 10/22/16 19:56 Seg Neutrophils # 2.7 K/mm3 (1.8-7.7) 10/22/16 19:56 Sodium 136 mmol/L (137-145) L 10/24/16 04:23 Potassium 3.3 mmol/L (3.6-5.0) L 10/24/16 04:23 Chloride 96.4 mmol/L (98-107) L 10/24/16 04:23 Carbon Dioxide 27 mmol/L (22-30) 10/24/16 04:23 Anion Gap 16 mmol/L 10/24/16 04:23 BUN 16 mg/dL (9-20) 10/24/16 04:23 Creatinine 0.8 mg/dL (0.8-1.5) 10/24/16 04:23 Estimated GFR > 60 ml/min 10/24/16 04:23 BUN/Creatinine Ratio 20.00 % 10/24/16 04:23 Glucose 104 mg/dL (75-100) H 10/24/16 04:23 POC Glucose 180 (70-105) H 10/23/16 23:56 Calcium 8.5 mg/dL (8.4-10.2) 10/24/16 04:23 Total Bilirubin 0.30 mg/dL (0.1-1.2) 10/22/16 19:56 AST 26 units/L (5-40) 10/22/16 19:56 ALT 36 units/L (7-56) 10/22/16 19:56 Alkaline Phosphatase 186 units/L (35-129) H 10/22/16 19:56 Total Creatine Kinase 134 units/L (55-170) 10/23/16 17:53 CK-MB (CK-2) 1.3 ng/mL (0.0-4.0) 10/23/16 17:53 CK-MB (CK-2) Rel Index 0.9 (0-4) 10/23/16 17:53 Troponin T < 0.010 ng/mL (0.00-0.029) 10/23/16 17:53 Total Protein 6.7 g/dL (6.3-8.2) 10/22/16 19:56 Albumin 3.7 g/dL (3.9-5) L 10/22/16 19:56 Albumin/Globulin Ratio 1.2 % 10/22/16 19:56 Lipase 5 units/L (13-60) L 10/22/16 19:56 Urine Color Yellow (Yellow) 10/22/16 20:20 Urine Turbidity Clear (Clear) 10/22/16 20:20 Urine pH 5.0 (5.0-7.0) 10/22/16 20:20 Ur Specific [place] 1.021 (1.003-1.030) 10/22/16 20:20 Urine Protein <15 mg/dl mg/dL (Negative) 10/22/16 20:20 Urine Glucose (UA) 50 mg/dL (Negative) 10/22/16 20:20 Urine Ketones Neg mg/dL (Negative) 10/22/16 20:20 Urine Blood Neg (Negative) 10/22/16 20:20 Urine Nitrite Neg (Negative) 10/22/16 20:20 Urine Bilirubin Neg (Negative) 10/22/16 20:20 Urine Urobilinogen < 2.0 mg/dL (<2.0) 10/22/16 20:20 Ur Leukocyte Esterase Neg (Negative) 10/22/16 20:20 Urine WBC (Auto) 2.0 /HPF (0.0-6.0) 10/22/16 20:20 Urine RBC (Auto) 97.0 /HPF (0.0-6.0) 10/22/16 20:20 Calcium Oxalate Crystal 3+ 10/22/16 20:20 Urine Mucus 1+ /HPF 10/22/16 20:20 Urine Yeast (Budding) Few /HPF 10/22/16 20:20 - Imaging and Cardiology CT scan - abdomen: image reviewed (pancreatic leasions in the head of the pancreas. Metastatic change is Suspected.) <CARLOS SEGURA M - Last Filed: 10/24/16 16:51> Assessment and Plan Assessment and plan: I saw and evaluated the patient. I agree with the findings and the plan of care as documented in the Nurse Practitioner's progress note. Hospitalist Physical - Constitutional Vitals: Temp Pulse Resp BP Pulse Ox 99.1 F 63 18 144/95 99 10/24/16 15:31 10/24/16 15:31 10/24/16 15:31 10/24/16 15:31 10/24/16 15:31 Results - Labs CBC & Chem 7: 10/24/16 04:23 10/24/16 04:23 Labs: Laboratory Last Values WBC 14.5 K/mm3 (4.5-11.0) H 10/24/16 04:23 RBC 5.32 M/mm3 (3.65-5.03) H 10/24/16 04:23 Hgb 14.0 gm/dl (11.8-15.2) 10/24/16 04:23 Hct 42.9 % (35.5-45.6) 10/24/16 04:23 MCV 81 fl (84-94) L 10/24/16 04:23 MCH 26 pg (28-32) L 10/24/16 04:23 MCHC 33 % (32-34) 10/24/16 04:23 RDW 15.4 % (13.2-15.2) H 10/24/16 04:23 Plt Count 166 K/mm3 (140-440) 10/24/16 04:23 Lymph % (Auto) 23.0 % (13.4-35.0) 10/22/16 19:56 Walsh % (Auto) 8.6 % (0.0-7.3) H 10/22/16 19:56 Eos % (Auto) 4.6 % (0.0-4.3) H 10/22/16 19:56 Baso % (Auto) 2.8 % (0.0-1.8) H 10/22/16 19:56 Lymph # 1.0 K/mm3 (1.2-5.4) L 10/22/16 19:56 Walsh # 0.4 K/mm3 (0.0-0.8) 10/22/16 19:56 Eos # 0.2 K/mm3 (0.0-0.4) 10/22/16 19:56 Baso # 0.1 K/mm3 (0.0-0.1) 10/22/16 19:56 Seg Neutrophils % 61.0 % (40.0-70.0) 10/22/16 19:56 Seg Neutrophils # 2.7 K/mm3 (1.8-7.7) 10/22/16 19:56 PT 17.3 Sec. (12.2-14.9) H 10/24/16 08:03 INR 1.34 (0.87-1.13) H 10/24/16 08:03 Sodium 136 mmol/L (137-145) L 10/24/16 04:23 Potassium 3.3 mmol/L (3.6-5.0) L 10/24/16 04:23 Chloride 96.4 mmol/L (98-107) L 10/24/16 04:23 Carbon Dioxide 27 mmol/L (22-30) 10/24/16 04:23 Anion Gap 16 mmol/L 10/24/16 04:23 BUN 16 mg/dL (9-20) 10/24/16 04:23 Creatinine 0.8 mg/dL (0.8-1.5) 10/24/16 04:23 Estimated GFR > 60 ml/min 10/24/16 04:23 BUN/Creatinine Ratio 20.00 % 10/24/16 04:23 Glucose 104 mg/dL (75-100) H 10/24/16 04:23 POC Glucose 77 (70-105) 10/24/16 11:41 Calcium 8.5 mg/dL (8.4-10.2) 10/24/16 04:23 Total Bilirubin 0.30 mg/dL (0.1-1.2) 10/22/16 19:56 AST 26 units/L (5-40) 10/22/16 19:56 ALT 36 units/L (7-56) 10/22/16 19:56 Alkaline Phosphatase 186 units/L (35-129) H 10/22/16 19:56 Total Creatine Kinase 134 units/L (55-170) 10/23/16 17:53 CK-MB (CK-2) 1.3 ng/mL (0.0-4.0) 10/23/16 17:53 CK-MB (CK-2) Rel Index 0.9 (0-4) 10/23/16 17:53 Troponin T < 0.010 ng/mL (0.00-0.029) 10/23/16 17:53 Total Protein 6.7 g/dL (6.3-8.2) 10/22/16 19:56 Albumin 3.7 g/dL (3.9-5) L 10/22/16 19:56 Albumin/Globulin Ratio 1.2 % 10/22/16 19:56 Lipase 5 units/L (13-60) L 10/22/16 19:56 Urine Color Yellow (Yellow) 10/22/16 20:20 Urine Turbidity Clear (Clear) 10/22/16 20:20 Urine pH 5.0 (5.0-7.0) 10/22/16 20:20 Ur Specific [place] 1.021 (1.003-1.030) 10/22/16 20:20 Urine Protein <15 mg/dl mg/dL (Negative) 10/22/16 20:20 Urine Glucose (UA) 50 mg/dL (Negative) 10/22/16 20:20 Urine Ketones Neg mg/dL (Negative) 10/22/16 20:20 Urine Blood Neg (Negative) 10/22/16 20:20 Urine Nitrite Neg (Negative) 10/22/16 20:20 Urine Bilirubin Neg (Negative) 10/22/16 20:20 Urine Urobilinogen < 2.0 mg/dL (<2.0) 10/22/16 20:20 Ur Leukocyte Esterase Neg (Negative) 10/22/16 20:20 Urine WBC (Auto) 2.0 /HPF (0.0-6.0) 10/22/16 20:20 Urine RBC (Auto) 97.0 /HPF (0.0-6.0) 10/22/16 20:20 Calcium Oxalate Crystal 3+ 10/22/16 20:20 Urine Mucus 1+ /HPF 10/22/16 20:20 Urine Yeast (Budding) Few /HPF 10/22/16 20:20
[2016-10-24 09:35] LABS: INR 1.34 (0.87-1.13)
[2016-10-24] MEDS: HEPARIN SUB-Q SCH ×2 (10:53→21:22)
[2016-10-24] MEDS: NOVOLOG SUB-Q SCH ×4 (10:53→21:23)
[2016-10-24] MEDS: GLUCOPHAGE PO SCH ×2 (10:53→21:22)
[2016-10-24] MEDS: NORVASC PO SCH (10:54)
[2016-10-24] MEDS: NACL 0.9% 1000 ML 1,000 ML IV SCH ×3 (15:25→21:21)
[2016-10-24] MEDS ORDERED: WATER FOR IRRIG STERILE IR ONE (15:31)
[2016-10-24] MEDS ORDERED: NACL 0.9% 100 ML ONE (15:32)
[2016-10-24] MEDS ORDERED: DIPRIVAN 10 MG/ML IV ONE ×4 (15:59)
[2016-10-24] MEDS ORDERED: SUBLIMAZE ONE (16:00)
[2016-10-24] MEDS ORDERED: VERSED ONE (16:00)
--- NOTE | 2016-10-24 16:29 | Anesthesia Consultation ---
Anesthesia Consult and Med Hx Date of service: 10/24/16 - Airway Anesthetic Teeth Evaluation: Partials ROM Head & Neck: Adequate Mental/Hyoid Distance: Adequate Mallampati Class: Class III Intubation Access Assessment: Possibly Difficult - Pulmonary Exam CTA: Yes - Cardiac Exam Cardiac Exam: RRR - Pre-Operative Health Status ASA Pre-Surgery Classification: ASA3 Proposed Anesthetic Plan: MAC - Pulmonary Hx Asthma: No COPD: No Hx Pneumonia: No - Cardiovascular System Hx Hypertension: Yes - Endocrine Hx End Stage Renal Disease: No Hx Insulin Dependent Diabetes: Yes
--- NOTE | 2016-10-24 16:29 | Anesthesia Day of Surgery ---
Anesthesia Day of Surgery - Day of Surgery Patient Examined: Yes Patient H&P Reviewed: Yes Patient is NPO: Yes
[2016-10-24] MEDS ORDERED: ZOFRAN ONE (17:00)
[2016-10-24] MEDS ORDERED: BREVIBLOC IV ONE (17:00)
[2016-10-24] MEDS ORDERED: DECADRON ONE (17:05)
[2016-10-24] MEDS ORDERED: NORMODYNE IV ONE (17:05)
--- NOTE | 2016-10-24 20:42 | Post Operative Note ---
Pre-op diagnosis: biliary obs Post-op diagnosis: same Findings: ERCP: stent noted, removed - 10f & cm stent placed - otherwise benign Procedure: ERCP Anesthesia: MAC Surgeon: FARHEEN ARRIAGA Estimated blood loss: none Pathology: none Condition: stable Disposition: floor
[2016-10-24] MEDS: DILAUDID IV PRN (21:22)
--- NOTE | 2016-10-25 08:47 | Fluoroscopy Report ---
FLUOROSCOPY ERCP BILIARY DUCT History: Pancreatic mass. Findings: Fluoroscopy was provided by radiology during ERCP by gastroenterology. 3 fluoroscopic images were captured. The images demonstrate placement of a 7 cm, 10 [place] common bile duct stent which adequately drains the biliary system on the final image. Please correlate with the procedural report. Impression: Common bile duct stent placement under fluoroscopy.
[2016-10-25 08:48] LABS: Alanine Aminotransferase 195 units/L (7-56); Albumin 2.9 g/dL (3.9-5); Albumin/Globulin Ratio 0.8 %; Alkaline Phosphatase 292 units/L (35-129); BUN/Creatinine Ratio 31.11; Blood Urea Nitrogen 28 mg/dL (9-20); Calcium 8.9 mg/dL (8.4-10.2); Carbon Dioxide 17 mmol/L (22-30); Chloride 100.8 mmol/L (98-107); Glucose 144 mg/dL (75-100); Potassium 4.6 mmol/L (3.6-5.0); Sodium 135 mmol/L (137-145); Total Protein 6.5 g/dL (6.3-8.2)
[2016-10-25 08:53] LABS: Anion Gap 22 mmol/L
[2016-10-25] MEDS ORDERED: GLUCAGEN ONE (09:00)
[2016-10-25] MEDS: NORVASC PO SCH (09:45)
[2016-10-25] MEDS: GLUCOPHAGE PO SCH (09:45)
[2016-10-25] MEDS: HEPARIN SUB-Q SCH (09:46)
--- NOTE | 2016-10-25 09:59 | Discharge Summary ---
Providers - Providers Date of Admission: 10/23/16 03:52 Date of discharge: 10/25/16 Attending physician: CARLOS SEGURA MD 10/24/16 11:31 Consult to Physician [CONS] Routine Consulting Provider: STORM OQUENDO Reason For Exam: Pancreatic mass Place consult to:: Office Notified:: yes Phone number called:: [phone] Was contact made?: Yes If yes, spoke with:: Georgette Time called:: 11:45 Primary care physician: BUSHLER Hospitalization Reason for admission: Pancreatic mass, Cachexia Condition: Stable Pertinent studies: ERCP Procedures: Pancreatic stent placement Hospital course: History of present illness, patient is a 66-year-old male who has been having epigastric abdominal pain going on for some months and occasional chest pain and there is no history of shortness of breath but there is history of nausea and no vomiting, patient also complaining of history of diarrhea and weight loss. Patient had similar symptoms in June of this year and was investigated and found to have a mass in the head of the pancreas suspected to be malignancy and patient had an endoscopy done with stent placed in the biliary system and patient is waiting for outpatient endoscopic ultrasound but has been having epigastric pain since he had the endoscopy in June 2016. Patient was admitted to the floor and GI was consulted, ERCP was done and shows stent and it was replaced. Patient's pain subsided. He is able to tolerate diet. Patient was discharged home with follow-up appointment with [place] [facility] doctor's for further workup. Patient was hemodynamically stable at the time of discharge. Patient's medications were revised and adjusted at the time of discharge. Patient's concerns and questions were answered at the bedside. Disposition: DC-01 TO HOME OR SELFCARE Time spent for discharge: 31 minutes - Discharge Diagnoses (1) Abdominal pain Status: Acute Qualifiers: Abdominal location: A (2) Pancreatic mass Status: Acute (3) Diabetes mellitus, new onset Status: Acute (4) HTN (hypertension) Status: Acute Qualifiers: Hypertension type: H Core Measure Documentation - Palliative Care Palliative Care/ Comfort Measures: Not Applicable - Core Measures Any of the following diagnoses?: none Exam - Physical Exam Narrative exam: Not in cardiopulmonary distress. The patient appeared chronically sick looking, malnourished. Vital signs as documented. Head exam is unremarkable. No scleral icterus . Neck is without jugular venous distension, thyromegaly, or carotid bruits. Lungs are clear to auscultation. Cardiac exam reveals regular rate and Rhythm. First and second heart sounds normal. No murmurs, rubs or gallops. Abdominal exam reveals normal bowel sounds. Extremities are nonedematous and both femoral and pedal pulses are normal. DOCUMENT SPECIALIST: Alert and oriented 3. No focal weakness. - Constitutional Vitals: Temp Pulse Resp BP Pulse Ox 98.2 F 54 L 18 142/87 100 10/25/16 04:45 10/25/16 04:45 10/25/16 04:45 10/25/16 04:45 10/25/16 08:59 Plan Activity: no restrictions Weight Bearing Status: Full Weight Bearing Diet: low salt, diabetic Follow up with: PRIMARY CARE, [Primary Care Provider] - 3-5 Days Prescriptions: amLODIPine [Norvasc] 5 mg PO DAILY #30 tablet HYDROcodone/APAP 5-325 [[place] 5/325] 1 each PO Q6HR PRN #12 tablet PRN Reason: Pain metFORMIN [Glucophage] 500 mg PO BID #60 tablet
[2016-10-25] MEDS: NOVOLOG SUB-Q SCH (10:15)
[2016-10-25 10:33] VITALS: BP 164/95
--- NOTE | 2016-10-25 11:13 | Gastroenterology Progress Note ---
Assessment and Plan GI: stable overnight - further management as outpt - will sign off, call if needed Subjective Date of service: 10/25/16 Interval history: - no issues overnight Objective - Constitutional Vitals: Temp Pulse Resp BP Pulse Ox 98.1 F 52 L 18 164/95 98 10/25/16 08:00 10/25/16 08:00 10/25/16 08:00 10/25/16 08:00 10/25/16 10:00 General appearance: no acute distress - Respiratory Respiratory: bilateral: CTA - Cardiovascular Rhythm: regular Heart Sounds: Present: S1 & S2 - Gastrointestinal General gastrointestinal: Present: soft, non-tender - Labs CBC & Chem 7: 10/24/16 04:23 10/25/16 07:37 Labs: Laboratory Results - last 24 hr 10/23/16 10/24/16 10/24/16 10:33 07:50 11:41 Sodium Potassium Chloride Carbon Dioxide Anion Gap BUN Creatinine Estimated GFR BUN/Creatinine Ratio Glucose POC Glucose 182 H 81 77 Calcium Total Bilirubin AST ALT Alkaline Phosphatase Total Protein Albumin Albumin/Globulin Ratio 10/24/16 10/25/16 10/25/16 20:55 07:37 08:08 Sodium 135 L Potassium 4.6 D Chloride 100.8 Carbon Dioxide 17 L D Anion Gap 22 BUN 28 H Creatinine 0.9 Estimated GFR > 60 BUN/Creatinine Ratio 31.11 Glucose 144 H POC Glucose 119 H 135 H Calcium 8.9 Total Bilirubin 0.80 AST 95 H ALT 195 H Alkaline Phosphatase 292 H Total Protein 6.5 Albumin 2.9 L Albumin/Globulin Ratio 0.8
[2016-10-25 11:26] LABS: Hematocrit 39.5 % (35.5-45.6); Hemoglobin 12.8 gm/dl (11.8-15.2); Mean Corpuscular HGB Conc 32 % (32-34); Mean Corpuscular Hemoglobin 26 pg (28-32); Mean Corpuscular Volume 80 fl (84-94); Platelet Count 148 K/mm3 (140-440); Red Blood Count 4.92 M/mm3 (3.65-5.03); Red Cell Distribution Width 15.1 % (13.2-15.2); White Blood Count 10.6 K/mm3 (4.5-11.0)
== END 2016-10-25 11:42 | disposition home or self-care (01) | DRG 439 ==
LOC: ED 19:36 → 4A 10-23 03:52
PROVIDERS: ADMIT Internal Medicine; ATTEND Internal Medicine
PROC: 0F798ZZ Dilation of Common Bile Duct, Via Natural or Artificial Opening Endoscopic (ICD-10-PCS; principal; 2016-10-24)
PROC: BF141ZZ Fluoroscopy of Gallbladder, Bile Ducts and Pancreatic Ducts using Low Osmolar Contrast (ICD-10-PCS; 2016-10-24)
DX: K86.89 Other specified diseases of pancreas (principal); E87.1 Hypo-osmolality and hyponatremia; R07.9 Chest pain, unspecified; I10 Essential (primary) hypertension; E11.9 Type 2 diabetes mellitus without complications; E87.6 Hypokalemia; K21.9 Gastro-esophageal reflux disease without esophagitis
CPT/HCPCS: 36415; 71010; 74176; 74328; 80048; 80053; 81001; 82550; 82553; 82962; 83690; 84484; 85025; 85027; 85610; 93005; 93010; 96374; 96375; C1726; C2625; J1100; J1170; J1610; J1644; J2250; J2405; J2704; J3010; J7030; Q9967